=== PATIENT | male | born 1965 | race Caucasian/White ===

== ENCOUNTER 2020-09-03 11:24 | Observation (INO) | payer OTHER, SELFPAY ==
[2020-09-03 11:53] VITALS: BMI 34.2
[2020-09-03] MEDS ORDERED: Acetaminophen 325 MG TAB PO PRN (14:17)
[2020-09-03] MEDS ORDERED: Ondansetron ODT 4 MG TAB PO PRN (14:17)
[2020-09-03] MEDS ORDERED: HYDROcodone/Acetaminophen 5/325 mg Tablet PO PRN (14:17)
[2020-09-03] MEDS ORDERED: Azithromycin 250 MG TAB PO SCH (14:45)
[2020-09-03] MEDS ORDERED: predniSONE 20 MG TAB PO SCH (14:45)
[2020-09-03] MEDS ORDERED: Furosemide 40 MG TAB PO SCH (14:45)
[2020-09-03] MEDS: Famotidine 20 MG TAB PO SCH (21:59)
[2020-09-04 05:32] LABS: #Monocytes 1.1 10x3/uL (0.0-1.1); #Neutrophils 15.6 10x3/uL (1.5-8.4); %Basophils 0.2 % (0.0-2.0); %Eosinophils 0.1 % (0.0-6.0); %Lymphocytes 10.4 % (18.0-47.0); %Monocytes 5.9 % (0.0-10.0); %Neutrophils 82.2 % (40.0-75.0); Hemoglobin 14.3 g/dL (13.5-17.5); Mean Corpuscular HGB CONC 32.3 g/dL (32.0-36.0); Mean Corpuscular Hemoglobin 26.7 pg (27.0-33.0); Mean Corpuscular Volume 82.6 fl (81.2-95.1); Platelet Count 389 10x3/uL (150-450); RBC Distribution Width 14.3 % (11.5-14.5); Red Blood Cell (RBC) Count 5.36 10x6/uL (4.32-5.72)
[2020-09-04 05:49] LABS: ALT (SGPT) 30 U/L (8-55); AST (SGOT) 22 U/L (5-34); Albumin 3.9 g/dL (3.5-5.0); Alkaline Phosphatase 115 U/L (40-110); Anion Gap 16 mmol/L (10-20); BUN (Urea Nitrogen) 30 mg/dL (8.4-25.7); Bilirubin, Total 0.3 mg/dL (0.2-1.2); Calc. Creatinine Clearance 94 mL/min (70-130); Calcium 9.4 mg/dL (7.8-10.44); Carbon Dioxide 28 mmol/L (22-29); Chloride 101 mmol/L (98-107); Globulin 2.9 g/dL (2.4-3.5); Glucose 133 mg/dL (70-105); Potassium 4.9 mmol/L (3.5-5.1); Protein, Total 6.8 g/dL (6.0-8.3); Sodium 140 mmol/L (136-145)
[2020-09-04] MEDS ORDERED: predniSONE 20 MG TAB PO SCH (08:00)
[2020-09-04 08:02] VITALS: BP 181/108; TEMP 97.6
[2020-09-04] MEDS: Famotidine 20 MG TAB PO SCH (08:30)
[2020-09-04] MEDS ORDERED: Furosemide 40 MG TAB PO SCH (09:00)
[2020-09-04] MEDS ORDERED: Enoxaparin Sodium 40 MG/0.4 ML SYRINGE SC SCH (09:00)
[2020-09-04] MEDS ORDERED: Azithromycin 250 MG TAB PO SCH (09:00)
== END 2020-09-04 11:40 | disposition left against medical advice (07) ==
LOC: CSHTELE 11:24
PROVIDERS: ADMIT Emergency Medicine; ATTEND Family Medicine
DX: I11.0 Hypertensive heart disease with heart failure (principal); I50.43 Acute on chronic combined systolic (congestive) and diastolic (congestive) heart failure; J44.1 Chronic obstructive pulmonary disease with (acute) exacerbation; F12.10 Cannabis abuse, uncomplicated; F15.10 Other stimulant abuse, uncomplicated; Z79.899 Other long term (current) drug therapy
CPT/HCPCS: 36415; 71046; 80053; 85025; 96372; G0378; J1650; J7512

== ENCOUNTER 2021-01-12 17:16 | Inpatient (IN) | payer MEDICARE ==
[2021-01-12 18:12] LABS: Base Excess (BEa) -2.7 mEq/L (-2.0 to +3.0); Calcium, Ionized (arterial) 1.16 mmol/L (1.12-1.30); Carboxyhemoglobin (COHb) 0.8 gm% (0.0-3.0); Hemoglobin (Hb) 13.6 g/dL (14.0-18.0); O2 Tension (PaO2), arterial 104.7 mmHg (80.0-100.0); Potassium - ABG Lab 5.6 mmol/L (3.70-5.30); Puncture Site RRA; pH, Arterial 7.23 (7.35-7.45)
[2021-01-12] MEDS ORDERED: Furosemide 100 MG/10 ML VIAL ONE (18:16)
[2021-01-12] MEDS ORDERED: Nitroglycerin 2% Ointment 1 INCH/1 GM Packet ONE (18:39)
[2021-01-12 18:47] LABS: ALT (SGPT) 1050 U/L (8-55); AST (SGOT) 779 U/L (5-34); Albumin 3.8 g/dL (3.5-5.0); Alkaline Phosphatase 207 U/L (40-110); Anion Gap 16 mmol/L (10-20); BUN (Urea Nitrogen) 58 mg/dL (8.4-25.7); Bilirubin, Total 2.2 mg/dL (0.2-1.2); Calc. Creatinine Clearance 0 mL/min (70-130); Carbon Dioxide 29 mmol/L (22-29); Chloride 99 mmol/L (98-107); Globulin 2.6 g/dL (2.4-3.5); Glucose 89 mg/dL (70-105); Protein, Total 6.4 g/dL (6.0-8.3); Sodium 138 mmol/L (136-145)
[2021-01-12 18:48] LABS: Potassium 6.2 mmol/L (3.5-5.1)
[2021-01-12 19:09] LABS: CKMB 3.8 ng/mL (0-6.6)
[2021-01-12 19:11] LABS: SARS-CoV-2 NAA Rapid Test Not Detected (NotDetected)
[2021-01-12 19:39] LABS: #Monocytes 1.5 10x3/uL (0.0-1.1); #Neutrophils 12.7 10x3/uL (1.5-8.4); %Basophils 0.1 % (0.0-2.0); %Eosinophils 0.1 % (0.0-6.0); %Lymphocytes 11.2 % (18.0-47.0); %Monocytes 9.2 % (0.0-10.0); %Neutrophils 78.6 % (40.0-75.0); Hemoglobin 13.2 g/dL (13.5-17.5); Mean Corpuscular HGB CONC 28.5 g/dL (32.0-36.0); Mean Corpuscular Hemoglobin 22.9 pg (27.0-33.0); Mean Corpuscular Volume 80.2 fl (81.2-95.1); Mean Platelet Volume 10.2 fl (7.4-10.4); Platelet Count 353 10x3/uL (150-450); RBC Distribution Width 18.8 % (11.5-14.5); Red Blood Cell (RBC) Count 5.77 10x6/uL (4.32-5.72); White Blood Cell (WBC) Count 16.2 10x3/uL (3.5-10.5)
[2021-01-12] MEDS ORDERED: Calcium Gluc 4.6 MEQ/10 ML (100 MG/ML) ONE (19:47)
[2021-01-12] MEDS ORDERED: Dextrose 50% Abboject 50 ML SYRINGE ONE (19:49)
[2021-01-12] MEDS ORDERED: Insulin Regular 300 UNITS/3 ML VIAL ONE (19:49)
[2021-01-12] MEDS ORDERED: Albuterol Sulfate 2.5 mg/3 ml Neb ONE ×3 (19:53→19:55)
[2021-01-12] MEDS ORDERED: Piperacillin/Tazobactam 3.375 GM VIAL ONE (20:47)
[2021-01-12] MEDS ORDERED: Sodium Chloride 0.9% 100 ML ONE (20:47)
[2021-01-12] MEDS ORDERED: Senokot S 8.6-50 MG TAB PO PRN (22:37)
[2021-01-12] MEDS ORDERED: Ondansetron PF 4 MG/2 ML Vial IVP PRN (22:37)
[2021-01-12] MEDS ORDERED: Calcium Carbonate 500 MG ChewTAB PO PRN (22:37)
[2021-01-12] MEDS ORDERED: Vancomycin 1 GM in Premix Bag 1 BAG IVPB SCH (22:45)
[2021-01-12] MEDS ORDERED: Lorazepam 2 MG/ML VIAL ONE (23:27)
[2021-01-12 23:42] LABS: Actual Bicarbonate (HCO3a) 33.1 mEq/L (22-28); Base Excess (BEa) 2.9 mEq/L (-2.0 to +3.0); CO2 Tension 81.6 mmHg (35.0-45.0); Calcium, Ionized (arterial) 1.14 mmol/L (1.12-1.30); Carboxyhemoglobin (COHb) 1.1 gm% (0.0-3.0); Hemoglobin (Hb) 13.6 g/dL (14.0-18.0); O2 Tension (PaO2), arterial 78.2 mmHg (80.0-100.0); Potassium - ABG Lab 5.1 mmol/L (3.70-5.30); Puncture Site RRA; pH, Arterial 7.23 (7.35-7.45)
[2021-01-12 23:51] LABS: Anion Gap 16 mmol/L (10-20); BUN (Urea Nitrogen) 56 mg/dL (8.4-25.7); CK (CPK) 79 U/L (30-200); Calc. Creatinine Clearance 0 mL/min (70-130); Calcium 8.7 mg/dL (7.8-10.44); Carbon Dioxide 33 mmol/L (22-29); Chloride 98 mmol/L (98-107); Glucose 64 mg/dL (70-105); Potassium 5.3 mmol/L (3.5-5.1); Sodium 142 mmol/L (136-145)
[2021-01-13 00:14] LABS: CKMB 2.4 ng/mL (0-6.6)
[2021-01-13] MEDS ORDERED: VANCOMYCIN 2 GRAM/400 ML BAG 2 GM in Premix Bag 1 BAG IVPB ONE (01:15)
[2021-01-13 01:25] LABS: Bilirubin Neg (Negative); Blood, Urine 250 (Negative); Glucose, Urine (Dipstick) Normal (Negative); Ketone, Urine Negative (Negative); Leukocyte 100 (Negative); Nitrite Negative (Negative); Protein, Urine (Dipstick) 30 mg/dl (Neg-Trace); Specific Gravity, Urine 1.015 (1.002-1.036); Urobilinogen Normal mg/dL (Less than 2)
[2021-01-13 01:28] LABS: Clarity Slightly Cloudy (Clear)
[2021-01-13 01:34] LABS: Amphetamine Not Detected (NotDetected); Barbiturates Screen Not Detected (NotDetected); Benzodiazepine Screen Not Detected (NotDetected); Cocaine Metabolite Screen Not Detected (NotDetected); Methadone Not Detected (NotDetected); Methamphetamine Not Detected (NotDetected); Opiate Screen Not Detected (NotDetected); Oxycodone Screen Not Detected (NotDetected); Phencyclidine (PCP) Not Detected (NotDetected); THC/Cannabinoid Screen Not Detected (NotDetected); Tricyclic Screen Not Detected (NotDetected)
[2021-01-13] MEDS ORDERED: hydrALAZINE 20 MG/ML VIAL ONE (01:35)
[2021-01-13] MEDS: hydrALAZINE 20 MG/ML VIAL SLOW IVP PRN (01:35)
[2021-01-13 01:42] LABS: Bacteria/HPF None Seen HPF (None Seen); RBC/HPF 21-50 HPF (0-3); Squamous Epithelial None Seen HPF (0-3)
[2021-01-13 02:45] LABS: Lactic Acid 1.8 mmol/L (0.5-2.2)
[2021-01-13] MEDS ORDERED: Piperacillin/Tazobactam 3.375 GM VIAL ONE (03:25)
[2021-01-13 04:50] LABS: ALT (SGPT) 877 U/L (8-55); AST (SGOT) 522 U/L (5-34); Albumin 3.2 g/dL (3.5-5.0); Alkaline Phosphatase 151 U/L (40-110); Anion Gap 13 mmol/L (10-20); BUN (Urea Nitrogen) 57 mg/dL (8.4-25.7); Bilirubin, Total 1.2 mg/dL (0.2-1.2); Calc. Creatinine Clearance 100 mL/min (70-130); Calcium 8.6 mg/dL (7.8-10.44); Carbon Dioxide 32 mmol/L (22-29); Chloride 100 mmol/L (98-107); Globulin 2.5 g/dL (2.4-3.5); Glucose 82 mg/dL (70-105); Potassium 5.3 mmol/L (3.5-5.1); Protein, Total 5.7 g/dL (6.0-8.3); Sodium 140 mmol/L (136-145)
[2021-01-13 04:58] LABS: Actual Bicarbonate (HCO3a) 28.8 mEq/L (22-28); Base Excess (BEa) -1.2 mEq/L (-2.0 to +3.0); CO2 Tension 76.2 mmHg (35.0-45.0); Calcium, Ionized (arterial) 1.14 mmol/L (1.12-1.30); Carboxyhemoglobin (COHb) 1.1 gm% (0.0-3.0); Hemoglobin (Hb) 13.5 g/dL (14.0-18.0); O2 Tension (PaO2), arterial 89.2 mmHg (80.0-100.0); Potassium - ABG Lab 5.1 mmol/L (3.70-5.30); Puncture Site RRA
[2021-01-13 05:12] LABS: CKMB 2.9 ng/mL (0-6.6)
[2021-01-13] MEDS: Piperacillin/Tazobactam 3.375 GM in Sodium Chloride 0.9% 100 ML IVPB SCH ×3 (06:10→21:47)
[2021-01-13] MEDS ORDERED: Furosemide 40 MG/4 ML VIAL ONE (06:14)
[2021-01-13] MEDS: Furosemide 40 MG/4 ML VIAL SLOW IVP SCH ×2 (06:17→21:49)
[2021-01-13] MEDS ORDERED: Budesonide 0.5 MG/2 ML NEB ONE (07:18)
[2021-01-13] MEDS: Budesonide 0.5 MG/2 ML NEB NEB SCH ×2 (07:50→19:11)
[2021-01-13] MEDS ORDERED: Spironolactone 25 MG TAB PO SCH (08:00)
[2021-01-13 08:57] LABS: #Monocytes 1.6 10x3/uL (0.0-1.1); #Neutrophils 11.5 10x3/uL (1.5-8.4); %Basophils 0.3 % (0.0-2.0); %Eosinophils 0.2 % (0.0-6.0); %Lymphocytes 8.9 % (18.0-47.0); %Monocytes 11.1 % (0.0-10.0); %Neutrophils 78.8 % (40.0-75.0); Hemoglobin 12.3 g/dL (13.5-17.5); Mean Corpuscular HGB CONC 29.4 g/dL (32.0-36.0); Mean Corpuscular Volume 78.1 fl (81.2-95.1); Mean Platelet Volume 10.3 fl (7.4-10.4); Platelet Count 307 10x3/uL (150-450); RBC Distribution Width 18.6 % (11.5-14.5); Red Blood Cell (RBC) Count 5.35 10x6/uL (4.32-5.72); White Blood Cell (WBC) Count 14.5 10x3/uL (3.5-10.5)
[2021-01-13] MEDS ORDERED: Lisinopril 10 MG TAB PO SCH (09:00)
[2021-01-13] MEDS ORDERED: Atorvastatin Calcium 40 MG TAB PO SCH (09:00)
[2021-01-13] MEDS ORDERED: Enoxaparin Sodium 40 MG/0.4 ML SYRINGE ONE (11:04)
[2021-01-13] MEDS ORDERED: Famotidine/PF 20 mg/2ml Vial ONE (11:04)
[2021-01-13] MEDS: Famotidine/PF 20 mg/2ml Vial SLOW IVP SCH ×2 (12:26→21:04)
[2021-01-13] MEDS: Enoxaparin Sodium 40 MG/0.4 ML SYRINGE SC SCH (12:27)
[2021-01-13] MEDS ORDERED: methylPREDNISolone Sod Succ/PF 40 MG in Sodium Chloride 0.9% 250 ML 250 ML IVPB SCH (14:00)
[2021-01-13 14:53] LABS: ALV-art Gradient 99.675 mmHg (0-20); Actual Bicarbonate (HCO3a) 35.6 mEq/L (22-28); Base Excess (BEa) 7.1 mEq/L (-2.0 to +3.0); CO2 Tension 70.9 mmHg (35.0-45.0); Calcium, Ionized (arterial) 1.09 mmol/L (1.12-1.30); Carboxyhemoglobin (COHb) 1.3 gm% (0.0-3.0); Hemoglobin (Hb) 12.9 g/dL (14.0-18.0); O2 Tension (PaO2), arterial 96.9 mmHg (80.0-100.0); Potassium - ABG Lab 4.8 mmol/L (3.70-5.30); Puncture Site RRA; pH, Arterial 7.32 (7.35-7.45)
[2021-01-13] MEDS ORDERED: Dexmedetomidine In 0.9 % NaCl 100 ML ONE (15:24)
[2021-01-13] MEDS: hydrALAZINE 25 MG TAB PO SCH ×3 (17:16→22:09)
[2021-01-13] MEDS: Carvedilol 25 MG TAB PO SCH ×2 (17:16→21:45)
[2021-01-13] MEDS: Dexmedetomidine In 0.9 % NaCl 100 ML IVPB SCH ×3 (17:31→23:55)
[2021-01-13 18:35] VITALS: BMI 49.4
[2021-01-13] MEDS: Amiodarone 200 MG TAB PO SCH (21:44)
[2021-01-13] MEDS: Aspirin Chewable 81 MG TAB PO SCH (21:44)
[2021-01-13] MEDS: Tamsulosin HCl 0.4 MG CAP PO SCH (21:46)
[2021-01-13] MEDS: VANCOMYCIN 2 GRAM/400 ML BAG 2 GM in Premix Bag 1 BAG IVPB SCH (21:48)
[2021-01-13] MEDS: methylPREDNISolone Sod Succ 40 MG VIAL IVP SCH ×2 (21:49→21:57)
[2021-01-13] MEDS: Nicotine 21 MG PATCH TD SCH (21:58)
[2021-01-13] MEDS ORDERED: diphenhydrAMINE 50 MG/ML VIAL IVP PRN (22:06)
[2021-01-13] MEDS: Clopidogrel Bisulfate 75 MG TAB PO SCH (22:10)
[2021-01-14] MEDS: VANCOMYCIN 2 GRAM/400 ML BAG 2 GM in Premix Bag 1 BAG IVPB SCH ×2 (00:14→13:55)
[2021-01-14] MEDS: Dexmedetomidine In 0.9 % NaCl 100 ML IVPB SCH ×3 (03:25→09:04)
[2021-01-14] MEDS: Piperacillin/Tazobactam 3.375 GM in Sodium Chloride 0.9% 100 ML IVPB SCH ×3 (04:28→19:07)
[2021-01-14 04:37] LABS: Anion Gap 14 mmol/L (10-20); BUN (Urea Nitrogen) 57 mg/dL (8.4-25.7); Calc. Creatinine Clearance 119 mL/min (70-130); Calcium 8.8 mg/dL (7.8-10.44); Carbon Dioxide 33 mmol/L (22-29); Chloride 100 mmol/L (98-107); Glucose 111 mg/dL (70-105); Potassium 5.9 mmol/L (3.5-5.1); Sodium 141 mmol/L (136-145)
[2021-01-14 04:44] LABS: #Monocytes 0.3 10x3/uL (0.0-1.1); #Neutrophils 8.8 10x3/uL (1.5-8.4); %Basophils 0.3 % (0.0-2.0); %Eosinophils 0.3 % (0.0-6.0); %Monocytes 3.2 % (0.0-10.0); %Neutrophils 88.8 % (40.0-75.0); Hemoglobin 12.9 g/dL (13.5-17.5); Mean Corpuscular HGB CONC 28.9 g/dL (32.0-36.0); Mean Corpuscular Hemoglobin 22.5 pg (27.0-33.0); Mean Corpuscular Volume 77.8 fl (81.2-95.1); RBC Distribution Width 18.7 % (11.5-14.5); Red Blood Cell (RBC) Count 5.73 10x6/uL (4.32-5.72); White Blood Cell (WBC) Count 9.9 10x3/uL (3.5-10.5)
[2021-01-14 04:59] LABS: Platelet Count 235 10x3/uL (150-450)
[2021-01-14 05:00] LABS: Mean Platelet Volume 10.5 fl (7.4-10.4)
[2021-01-14] MEDS: Furosemide 40 MG/4 ML VIAL SLOW IVP SCH ×2 (05:02→13:52)
[2021-01-14] MEDS: methylPREDNISolone Sod Succ 40 MG VIAL IVP SCH ×3 (05:03→21:07)
[2021-01-14 06:41] LABS: Helmet Cells SLIGHT = 2-5 cells (100X) (0-1/hpf); Ovalocytes MODERATE= 6-15 cells (100X) (0-1/hpf); Poikilocytosis MODERATE=16-30 cells (100X) (0-5/hpf)
[2021-01-14 06:42] LABS: Anisocytosis SLIGHT = 6-15 cells (100X) (0-5/hpf); Hypochromia SLIGHT = 6-15 cells (100X) (0-5/hpf); Microcytosis SLIGHT = 6-15 cells (100X) (0-5/hpf)
[2021-01-14 06:43] LABS: Platelet Clumps SLIGHT; Platelet Morphology Comment Appears Adequate
[2021-01-14] MEDS: Budesonide 0.5 MG/2 ML NEB NEB SCH (07:17)
[2021-01-14] MEDS: hydrALAZINE 20 MG/ML VIAL SLOW IVP PRN (08:40)
[2021-01-14] MEDS: Carvedilol 25 MG TAB PO SCH ×2 (09:00→18:22)
[2021-01-14] MEDS: Enoxaparin Sodium 40 MG/0.4 ML SYRINGE SC SCH (09:05)
[2021-01-14] MEDS: Nicotine 21 MG PATCH TD SCH (09:05)
[2021-01-14 09:29] LABS: #Monocytes 0.1 10x3/uL (0.0-1.1); #Neutrophils 7.5 10x3/uL (1.5-8.4); %Basophils 0.1 % (0.0-2.0); %Lymphocytes 5.7 % (18.0-47.0); %Monocytes 1.2 % (0.0-10.0); %Neutrophils 92.3 % (40.0-75.0); Hemoglobin 13.3 g/dL (13.5-17.5); Mean Corpuscular Hemoglobin 22.8 pg (27.0-33.0); Mean Corpuscular Volume 76.2 fl (81.2-95.1); Mean Platelet Volume 9.8 fl (7.4-10.4); Platelet Count 281 10x3/uL (150-450); RBC Distribution Width 19.1 % (11.5-14.5); Red Blood Cell (RBC) Count 5.83 10x6/uL (4.32-5.72); White Blood Cell (WBC) Count 8.1 10x3/uL (3.5-10.5)
[2021-01-14] MEDS: Famotidine/PF 20 mg/2ml Vial SLOW IVP SCH ×2 (09:40→20:29)
[2021-01-14] MEDS: hydrALAZINE 25 MG TAB PO SCH ×3 (09:47→20:28)
[2021-01-14 10:04] LABS: Base Excess (BEa) 7.6 mEq/L (-2.0 to +3.0); Calcium, Ionized (arterial) 1.09 mmol/L (1.12-1.30); Carboxyhemoglobin (COHb) 0.8 gm% (0.0-3.0); Hemoglobin (Hb) 13.9 g/dL (14.0-18.0); O2 Tension (PaO2), arterial 95.2 mmHg (80.0-100.0); Potassium - ABG Lab 5.1 mmol/L (3.70-5.30); Puncture Site LRA; pH, Arterial 7.41 (7.35-7.45)
[2021-01-14 10:13] LABS: Anion Gap 18 mmol/L (10-20); BUN (Urea Nitrogen) 56 mg/dL (8.4-25.7); Calc. Creatinine Clearance 110 mL/min (70-130); Calcium 9.1 mg/dL (7.8-10.44); Carbon Dioxide 32 mmol/L (22-29); Chloride 100 mmol/L (98-107); Glucose 151 mg/dL (70-105); Potassium 5.7 mmol/L (3.5-5.1); Sodium 144 mmol/L (136-145)
[2021-01-14] MEDS: Amiodarone 200 MG TAB PO SCH (11:37)
[2021-01-14] MEDS: Tamsulosin HCl 0.4 MG CAP PO SCH (11:37)
[2021-01-14] MEDS: Aspirin Chewable 81 MG TAB PO SCH (11:37)
[2021-01-14 12:36] LABS: Vancomycin, Trough 14.8 ug/mL
[2021-01-14] MEDS: Clopidogrel Bisulfate 75 MG TAB PO SCH (20:28)
[2021-01-15] MEDS: Budesonide 0.5 MG/2 ML NEB NEB SCH ×3 (00:07→19:56)
[2021-01-15] MEDS: VANCOMYCIN 2 GRAM/400 ML BAG 2 GM in Premix Bag 1 BAG IVPB SCH ×2 (00:17→13:01)
[2021-01-15] MEDS: Piperacillin/Tazobactam 3.375 GM in Sodium Chloride 0.9% 100 ML IVPB SCH ×3 (03:43→19:33)
[2021-01-15 04:17] LABS: #Monocytes 0.5 10x3/uL (0.0-1.1); #Neutrophils 12.1 10x3/uL (1.5-8.4); %Basophils 0.1 % (0.0-2.0); %Lymphocytes 4.4 % (18.0-47.0); %Monocytes 3.8 % (0.0-10.0); %Neutrophils 91.2 % (40.0-75.0); Anion Gap 15 mmol/L (10-20); BUN (Urea Nitrogen) 55 mg/dL (8.4-25.7); Calc. Creatinine Clearance 119 mL/min (70-130); Calcium 8.7 mg/dL (7.8-10.44); Carbon Dioxide 35 mmol/L (22-29); Chloride 98 mmol/L (98-107); Glucose 113 mg/dL (70-105); Hemoglobin 11.7 g/dL (13.5-17.5); Mean Corpuscular HGB CONC 29.7 g/dL (32.0-36.0); Mean Corpuscular Hemoglobin 22.6 pg (27.0-33.0); Mean Corpuscular Volume 76.1 fl (81.2-95.1); Mean Platelet Volume 9.9 fl (7.4-10.4); Platelet Count 300 10x3/uL (150-450); Potassium 4.5 mmol/L (3.5-5.1); RBC Distribution Width 18.6 % (11.5-14.5); Red Blood Cell (RBC) Count 5.18 10x6/uL (4.32-5.72); Sodium 143 mmol/L (136-145); White Blood Cell (WBC) Count 13.3 10x3/uL (3.5-10.5)
[2021-01-15] MEDS: Furosemide 40 MG/4 ML VIAL SLOW IVP SCH ×2 (05:30→14:12)
[2021-01-15] MEDS: methylPREDNISolone Sod Succ 40 MG VIAL IVP SCH ×2 (05:30→20:52)
[2021-01-15] MEDS: Famotidine/PF 20 mg/2ml Vial SLOW IVP SCH ×2 (08:22→20:52)
[2021-01-15] MEDS: Aspirin Chewable 81 MG TAB PO SCH (08:23)
[2021-01-15] MEDS: Tamsulosin HCl 0.4 MG CAP PO SCH (08:23)
[2021-01-15] MEDS: Amiodarone 200 MG TAB PO SCH (08:23)
[2021-01-15] MEDS: Enoxaparin Sodium 40 MG/0.4 ML SYRINGE SC SCH (08:23)
[2021-01-15] MEDS: Nicotine 21 MG PATCH TD SCH (08:23)
[2021-01-15] MEDS: Carvedilol 25 MG TAB PO SCH ×2 (08:24→18:04)
[2021-01-15] MEDS: hydrALAZINE 25 MG TAB PO SCH ×3 (08:34→20:51)
[2021-01-15] MEDS: Clopidogrel Bisulfate 75 MG TAB PO SCH (20:59)
[2021-01-16] MEDS: Acetaminophen 325 MG TAB PO PRN ×2 (00:18→05:04)
[2021-01-16] MEDS: VANCOMYCIN 2 GRAM/400 ML BAG 2 GM in Premix Bag 1 BAG IVPB SCH (00:21)
[2021-01-16] MEDS: Piperacillin/Tazobactam 3.375 GM in Sodium Chloride 0.9% 100 ML IVPB SCH (03:17)
[2021-01-16 04:41] LABS: #Monocytes 0.7 10x3/uL (0.0-1.1); #Neutrophils 10.8 10x3/uL (1.5-8.4); %Basophils 0.1 % (0.0-2.0); %Lymphocytes 4.1 % (18.0-47.0); %Monocytes 5.6 % (0.0-10.0); %Neutrophils 89.6 % (40.0-75.0); Hemoglobin 11.6 g/dL (13.5-17.5); Mean Corpuscular HGB CONC 30.6 g/dL (32.0-36.0); Mean Corpuscular Hemoglobin 23.2 pg (27.0-33.0); Mean Platelet Volume 9.8 fl (7.4-10.4); Platelet Count 276 10x3/uL (150-450); RBC Distribution Width 18.9 % (11.5-14.5); Red Blood Cell (RBC) Count 4.99 10x6/uL (4.32-5.72); White Blood Cell (WBC) Count 12.1 10x3/uL (3.5-10.5)
[2021-01-16 04:54] LABS: ALT (SGPT) 372 U/L (8-55); AST (SGOT) 68 U/L (5-34); Alkaline Phosphatase 102 U/L (40-110); Anion Gap 14 mmol/L (10-20); BUN (Urea Nitrogen) 52 mg/dL (8.4-25.7); Bilirubin, Total 0.9 mg/dL (0.2-1.2); Calc. Creatinine Clearance 125 mL/min (70-130); Calcium 8.7 mg/dL (7.8-10.44); Carbon Dioxide 35 mmol/L (22-29); Chloride 99 mmol/L (98-107); Globulin 2.4 g/dL (2.4-3.5); Glucose 125 mg/dL (70-105); Potassium 4.6 mmol/L (3.5-5.1); Protein, Total 5.4 g/dL (6.0-8.3); Sodium 143 mmol/L (136-145)
[2021-01-16] MEDS: Furosemide 40 MG/4 ML VIAL SLOW IVP SCH ×2 (06:07→16:06)
[2021-01-16] MEDS: Budesonide 0.5 MG/2 ML NEB NEB SCH ×2 (08:06→19:15)
[2021-01-16] MEDS: Aspirin Chewable 81 MG TAB PO SCH (10:23)
[2021-01-16] MEDS: Enoxaparin Sodium 40 MG/0.4 ML SYRINGE SC SCH (10:23)
[2021-01-16] MEDS: Carvedilol 25 MG TAB PO SCH ×2 (10:23→16:06)
[2021-01-16] MEDS: Amoxicillin/Potassium Clav 875 MG TAB PO SCH ×2 (10:23→21:02)
[2021-01-16] MEDS: Nicotine 21 MG PATCH TD SCH (10:23)
[2021-01-16] MEDS: methylPREDNISolone Sod Succ 40 MG VIAL IVP SCH ×2 (10:23→21:01)
[2021-01-16] MEDS: Tamsulosin HCl 0.4 MG CAP PO SCH (10:24)
[2021-01-16] MEDS: Famotidine/PF 20 mg/2ml Vial SLOW IVP SCH ×2 (10:24→21:01)
[2021-01-16] MEDS: hydrALAZINE 25 MG TAB PO SCH ×3 (10:24→21:02)
[2021-01-16] MEDS: Amiodarone 200 MG TAB PO SCH (10:24)
[2021-01-16] MEDS: Clopidogrel Bisulfate 75 MG TAB PO SCH (21:04)
[2021-01-17 04:07] LABS: Anion Gap 12 mmol/L (10-20); BUN (Urea Nitrogen) 42 mg/dL (8.4-25.7); Calc. Creatinine Clearance 135 mL/min (70-130); Calcium 8.8 mg/dL (7.8-10.44); Carbon Dioxide 34 mmol/L (22-29); Chloride 101 mmol/L (98-107); Glucose 236 mg/dL (70-105); Potassium 4.4 mmol/L (3.5-5.1); Sodium 143 mmol/L (136-145)
[2021-01-17 04:08] LABS: #Monocytes 0.6 10x3/uL (0.0-1.1); #Neutrophils 8.8 10x3/uL (1.5-8.4); %Lymphocytes 3.8 % (18.0-47.0); %Monocytes 6.5 % (0.0-10.0); %Neutrophils 89.3 % (40.0-75.0); Hemoglobin 11.6 g/dL (13.5-17.5); Mean Corpuscular HGB CONC 29.4 g/dL (32.0-36.0); Mean Corpuscular Hemoglobin 22.6 pg (27.0-33.0); Mean Corpuscular Volume 76.8 fl (81.2-95.1); Mean Platelet Volume 10.5 fl (7.4-10.4); Platelet Count 275 10x3/uL (150-450); RBC Distribution Width 18.5 % (11.5-14.5); Red Blood Cell (RBC) Count 5.13 10x6/uL (4.32-5.72); White Blood Cell (WBC) Count 9.8 10x3/uL (3.5-10.5)
[2021-01-17] MEDS: Furosemide 20 MG/2 ML VIAL ONE (05:41)
[2021-01-17] MEDS: Furosemide 40 MG/4 ML VIAL SLOW IVP SCH (05:42)
[2021-01-17] MEDS: Budesonide 0.5 MG/2 ML NEB NEB SCH (06:45)
[2021-01-17] MEDS ORDERED: predniSONE 20 MG TAB PO SCH (08:00)
[2021-01-17] MEDS: Nicotine 21 MG PATCH TD SCH (09:05)
[2021-01-17] MEDS: Enoxaparin Sodium 40 MG/0.4 ML SYRINGE SC SCH (09:05)
[2021-01-17] MEDS: Aspirin Chewable 81 MG TAB PO SCH (09:05)
[2021-01-17] MEDS: hydrALAZINE 25 MG TAB PO SCH (09:06)
[2021-01-17] MEDS: methylPREDNISolone Sod Succ 40 MG VIAL IVP SCH (09:06)
[2021-01-17] MEDS: Carvedilol 25 MG TAB PO SCH (09:06)
[2021-01-17] MEDS: Famotidine/PF 20 mg/2ml Vial SLOW IVP SCH (09:06)
[2021-01-17] MEDS: Amoxicillin/Potassium Clav 875 MG TAB PO SCH (09:06)
[2021-01-17] MEDS: Tamsulosin HCl 0.4 MG CAP PO SCH (09:06)
[2021-01-17] MEDS: Amiodarone 200 MG TAB PO SCH (09:06)
[2021-01-17 13:14] VITALS: BP 138/89; TEMP 98.3
[2021-01-17] MEDS ORDERED: Furosemide 40 MG/4 ML VIAL SLOW IVP SCH (14:15)
[2021-01-18] MEDS ORDERED: predniSONE 20 MG TAB PO SCH (08:00)
== END 2021-01-17 16:04 | disposition home or self-care (01) | DRG 871 ==
LOC: CSHERS 17:16 → CSHERHOLD 01-13 01:42 → CSHIMCU 01-13 15:57 → CSHTELE 01-15 13:45
PROVIDERS: ADMIT Student in an Organized Health Care Education/Training Program; ATTEND Internal Medicine
PROC: 5A09457 Assistance with Respiratory Ventilation, 24-96 Consecutive Hours, Continuous Positive Airway Pressure (ICD-10-PCS; principal; 2021-01-13)
DX: A41.9 Sepsis, unspecified organism (principal); G93.41 Metabolic encephalopathy; J96.22 Acute and chronic respiratory failure with hypercapnia; J96.21 Acute and chronic respiratory failure with hypoxia; I50.43 Acute on chronic combined systolic (congestive) and diastolic (congestive) heart failure; J15.6 Pneumonia due to other Gram-negative bacteria; I13.0 Hypertensive heart and chronic kidney disease with heart failure and stage 1 through stage 4 chronic kidney disease, or unspecified chronic kidney disease; N17.9 Acute kidney failure, unspecified; Z68.42 Body mass index [BMI] 45.0-49.9, adult; J44.1 Chronic obstructive pulmonary disease with (acute) exacerbation; I42.9 Cardiomyopathy, unspecified; Z20.822 Contact with and (suspected) exposure to COVID-19; R74.01 Elevation of levels of liver transaminase levels; I48.0 Paroxysmal atrial fibrillation; I25.10 Atherosclerotic heart disease of native coronary artery without angina pectoris; R77.8 Other specified abnormalities of plasma proteins; E87.5 Hyperkalemia; E78.5 Hyperlipidemia, unspecified; N18.30 Chronic kidney disease, stage 3 unspecified; G47.33 Obstructive sleep apnea (adult) (pediatric); Z91.14 Patient's other noncompliance with medication regimen; E66.01 Morbid (severe) obesity due to excess calories; Z79.01 Long term (current) use of anticoagulants; Z79.82 Long term (current) use of aspirin; Z79.899 Other long term (current) drug therapy; F17.210 Nicotine dependence, cigarettes, uncomplicated; N40.0 Benign prostatic hyperplasia without lower urinary tract symptoms
CPT/HCPCS: 36415; 36600; 51702; 70450; 71045; 76705; 80048; 80053; 80202; 80306; 81001; 82550; 82553; 82805; 83605; 83735; 83880; 84145; 84443; 84484; 85025; 87040; 93005; 93306; 93923; 93970; 94640; 94660; 94760; 96365; 96367; 96375; J0360; J1650; J1815; J1940; J2001; J2060; J2543; J2920; J3370; J3490; J7611; J7620; J7626; S0028; U0002

== ENCOUNTER 2021-03-14 04:54 | Inpatient (IN) | payer MEDICARE ==
[2021-03-14 05:43] LABS: #Basophils 0.1 10x3/uL (0.0-0.2); #Eosinphils 0.2 10x3/uL (0.0-0.5); #Monocytes 0.6 10x3/uL (0.0-1.1); #Neutrophils 4.8 10x3/uL (1.5-8.4); %Basophils 0.7 % (0.0-2.0); %Eosinophils 2.2 % (0.0-6.0); %Lymphocytes 18.7 % (18.0-47.0); %Monocytes 8.3 % (0.0-10.0); %Neutrophils 69.8 % (40.0-75.0); Anion Gap 13 mmol/L (10-20); BUN (Urea Nitrogen) 17 mg/dL (8.4-25.7); Calc. Creatinine Clearance 0 mL/min (70-130); Carbon Dioxide 24 mmol/L (22-29); Chloride 109 mmol/L (98-107); Hemoglobin 9.7 g/dL (13.5-17.5); Mean Corpuscular HGB CONC 28.2 g/dL (32.0-36.0); Mean Corpuscular Hemoglobin 20.9 pg (27.0-33.0); Mean Platelet Volume 9.9 fl (7.4-10.4); Platelet Count 372 10x3/uL (150-450); RBC Distribution Width 19.4 % (11.5-14.5); Red Blood Cell (RBC) Count 4.65 10x6/uL (4.32-5.72); Sodium 142 mmol/L (136-145); White Blood Cell (WBC) Count 6.9 10x3/uL (3.5-10.5)
[2021-03-14 05:44] LABS: ALT (SGPT) 14 U/L (8-55); AST (SGOT) 20 U/L (5-34); Albumin 3.8 g/dL (3.5-5.0); Alkaline Phosphatase 91 U/L (40-110); Bilirubin, Total 0.6 mg/dL (0.2-1.2); Calcium 8.7 mg/dL (7.8-10.44); Glucose 197 mg/dL (70-105); Protein, Total 6.8 g/dL (6.0-8.3)
[2021-03-14 06:03] LABS: CKMB 3.5 ng/mL (0-6.6)
[2021-03-14] MEDS ORDERED: Aspirin Chewable 81 MG TAB ONE (06:07)
[2021-03-14 06:10] LABS: Anisocytosis MODERATE=16-30 cells (100X) (0-5/hpf); Hypochromia SLIGHT = 6-15 cells (100X) (0-5/hpf); Microcytosis MODERATE=15-30 cells (100X) (0-5/hpf); Poikilocytosis SLIGHT = 6-15 cells (100X) (0-5/hpf)
[2021-03-14 06:11] LABS: Elliptocytes SLIGHT = 2-5 cells (100X) (0-1/hpf); Large Platelets SLIGHT; Ovalocytes SLIGHT = 2-5 cells (100X) (0-1/hpf); Platelet Morphology Comment Appears Adequate; Polychromasia SLIGHT = 2-3 cells (100X) (0-2/hpf)
[2021-03-14 06:14] LABS: Macrocytosis SLIGHT = 6-15 cells (100X) (0-5/hpf)
[2021-03-14] MEDS ORDERED: Calcium Carbonate 500 MG ChewTAB PO PRN (06:24)
[2021-03-14] MEDS ORDERED: Senokot S 8.6-50 MG TAB PO PRN (06:24)
[2021-03-14] MEDS ORDERED: Acetaminophen 325 MG TAB PO PRN (06:24)
[2021-03-14 06:27] LABS: Bilirubin Neg (Negative); Blood, Urine Negative (Negative); Clarity Clear (Clear); Glucose, Urine (Dipstick) Normal (Negative); Ketone, Urine Negative (Negative); Leukocyte Negative (Negative); Nitrite Negative (Negative); Protein, Urine (Dipstick) 100 mg/dl (Neg-Trace)
[2021-03-14 06:33] LABS: Bacteria/HPF 1+ HPF (None Seen); RBC/HPF 0-3 HPF (0-3); Squamous Epithelial 0-3 HPF (0-3); WBC/HPF 0-3 HPF (0-3)
[2021-03-14 06:33] LABS: SARS-CoV-2 NAA Rapid Test Not Detected (NotDetected)
[2021-03-14 06:34] LABS: Mucous/LPF 1+ LPF (<2+)
[2021-03-14] MEDS ORDERED: Amiodarone In Dextrose 200 ML ONE (06:42)
[2021-03-14 06:49] LABS: Amphetamine Detected (NotDetected); Barbiturates Screen Not Detected (NotDetected); Benzodiazepine Screen Not Detected (NotDetected); Cocaine Metabolite Screen Not Detected (NotDetected); Methadone Not Detected (NotDetected); Methamphetamine Detected (NotDetected); Opiate Screen Not Detected (NotDetected); Oxycodone Screen Not Detected (NotDetected); Phencyclidine (PCP) Not Detected (NotDetected); THC/Cannabinoid Screen Detected (NotDetected); Tricyclic Screen Not Detected (NotDetected)
[2021-03-14 09:02] LABS: Magnesium 1.8 mg/dL (1.6-2.6)
[2021-03-14 09:17] LABS: CKMB 4.8 ng/mL (0-6.6)
[2021-03-14] MEDS: Budesonide 0.5 MG/2 ML NEB NEB SCH ×2 (09:50→20:31)
[2021-03-14 10:39] VITALS: BMI 44.8
[2021-03-14] MEDS: Carvedilol 25 MG TAB PO SCH ×2 (10:40→18:12)
[2021-03-14] MEDS: Spironolactone 25 MG TAB PO SCH (10:43)
[2021-03-14] MEDS: Tamsulosin HCl 0.4 MG CAP PO SCH (10:43)
[2021-03-14] MEDS: Ferrous Sulfate 325 MG TAB PO SCH (10:43)
[2021-03-14] MEDS: Furosemide 40 MG TAB PO SCH ×3 (10:44→15:17)
[2021-03-14] MEDS: Gabapentin 300 MG CAP PO SCH ×3 (10:44→21:23)
[2021-03-14] MEDS: Aspirin 81 mg Enteric Coated Tablet PO SCH (10:45)
[2021-03-14] MEDS: Enoxaparin Sodium 120 MG/0.8 ML SYRINGE SC SCH ×2 (11:46→23:32)
[2021-03-14] MEDS: Amiodarone In Dextrose 200 ML IVPB SCH (12:14)
[2021-03-14 12:57] LABS: CKMB 5.8 ng/mL (0-6.6)
[2021-03-14] MEDS: Atorvastatin Calcium 40 MG TAB PO SCH (21:25)
[2021-03-14] MEDS ORDERED: Zolpidem Tartrate 5 MG TAB PO PRN (23:26)
[2021-03-15] MEDS: Amiodarone In Dextrose 200 ML IVPB SCH (01:21)
[2021-03-15 04:34] LABS: #Basophils 0.1 10x3/uL (0.0-0.2); #Eosinphils 0.1 10x3/uL (0.0-0.5); #Monocytes 0.6 10x3/uL (0.0-1.1); #Neutrophils 3.6 10x3/uL (1.5-8.4); %Basophils 0.8 % (0.0-2.0); %Eosinophils 2.3 % (0.0-6.0); %Lymphocytes 27.8 % (18.0-47.0); %Neutrophils 58.8 % (40.0-75.0); Hemoglobin 9.6 g/dL (13.5-17.5); Mean Corpuscular HGB CONC 28.5 g/dL (32.0-36.0); Mean Corpuscular Hemoglobin 20.9 pg (27.0-33.0); Mean Corpuscular Volume 73.4 fl (81.2-95.1); Mean Platelet Volume 10.1 fl (7.4-10.4); Platelet Count 359 10x3/uL (150-450); RBC Distribution Width 19.7 % (11.5-14.5); Red Blood Cell (RBC) Count 4.59 10x6/uL (4.32-5.72); White Blood Cell (WBC) Count 6.1 10x3/uL (3.5-10.5)
[2021-03-15 04:43] LABS: Anion Gap 14 mmol/L (10-20); BUN (Urea Nitrogen) 19 mg/dL (8.4-25.7); Calc. Creatinine Clearance 101 mL/min (70-130); Calcium 8.8 mg/dL (7.8-10.44); Carbon Dioxide 27 mmol/L (22-29); Chloride 105 mmol/L (98-107); Glucose 113 mg/dL (70-105); Sodium 141 mmol/L (136-145)
[2021-03-15] MEDS: Budesonide 0.5 MG/2 ML NEB NEB SCH ×2 (06:15→19:45)
[2021-03-15] MEDS: Carvedilol 25 MG TAB PO SCH ×2 (09:00→17:15)
[2021-03-15] MEDS: Ferrous Sulfate 325 MG TAB PO SCH (09:00)
[2021-03-15] MEDS ORDERED: Enoxaparin Sodium 120 MG/0.8 ML SYRINGE SC ONE (09:04)
[2021-03-15] MEDS: Gabapentin 300 MG CAP PO SCH ×3 (09:51→20:27)
[2021-03-15] MEDS: Tamsulosin HCl 0.4 MG CAP PO SCH (09:52)
[2021-03-15] MEDS: Aspirin 81 mg Enteric Coated Tablet PO SCH (09:52)
[2021-03-15] MEDS: Enoxaparin Sodium 120 MG/0.8 ML SYRINGE SC SCH ×2 (12:00→22:22)
[2021-03-15] MEDS: Spironolactone 25 MG TAB PO SCH (17:16)
[2021-03-15] MEDS: Nicotine 14 MG PATCH TOP SCH (17:16)
[2021-03-15] MEDS: Furosemide 40 MG TAB PO SCH (17:19)
[2021-03-15] MEDS: Atorvastatin Calcium 40 MG TAB PO SCH (20:27)
[2021-03-15] MEDS: Amiodarone 200 MG TAB PO SCH (20:27)
[2021-03-16] MEDS ORDERED: Furosemide 100 MG/10 ML VIAL SLOW IVP SCH (06:00)
[2021-03-16] MEDS: Budesonide 0.5 MG/2 ML NEB NEB SCH (06:30)
[2021-03-16 06:32] LABS: #Basophils 0.1 10x3/uL (0.0-0.2); #Eosinphils 0.1 10x3/uL (0.0-0.5); #Monocytes 0.5 10x3/uL (0.0-1.1); #Neutrophils 3.6 10x3/uL (1.5-8.4); %Basophils 0.9 % (0.0-2.0); %Eosinophils 2.1 % (0.0-6.0); %Lymphocytes 25.2 % (18.0-47.0); %Monocytes 8.9 % (0.0-10.0); %Neutrophils 62.6 % (40.0-75.0); Hemoglobin 9.3 g/dL (13.5-17.5); Mean Corpuscular HGB CONC 26.9 g/dL (32.0-36.0); Mean Corpuscular Hemoglobin 20.4 pg (27.0-33.0); Mean Corpuscular Volume 75.7 fl (81.2-95.1); Mean Platelet Volume 10.5 fl (7.4-10.4); Platelet Count 363 10x3/uL (150-450); RBC Distribution Width 19.4 % (11.5-14.5); Red Blood Cell (RBC) Count 4.57 10x6/uL (4.32-5.72); White Blood Cell (WBC) Count 5.7 10x3/uL (3.5-10.5)
[2021-03-16 06:39] LABS: Anion Gap 14 mmol/L (10-20); BUN (Urea Nitrogen) 20 mg/dL (8.4-25.7); Calc. Creatinine Clearance 98 mL/min (70-130); Calcium 8.7 mg/dL (7.8-10.44); Carbon Dioxide 24 mmol/L (22-29); Chloride 107 mmol/L (98-107); Glucose 116 mg/dL (70-105); Potassium 5.1 mmol/L (3.5-5.1); Sodium 140 mmol/L (136-145)
[2021-03-16 08:25] VITALS: BP 141/81; TEMP 97.8
[2021-03-16] MEDS: Carvedilol 25 MG TAB PO SCH (08:50)
[2021-03-16] MEDS: Ferrous Sulfate 325 MG TAB PO SCH (08:50)
[2021-03-16] MEDS: Spironolactone 25 MG TAB PO SCH (08:52)
[2021-03-16] MEDS: Gabapentin 300 MG CAP PO SCH (09:45)
[2021-03-16] MEDS: Tamsulosin HCl 0.4 MG CAP PO SCH (09:47)
[2021-03-16] MEDS: Amiodarone 200 MG TAB PO SCH (09:48)
[2021-03-16] MEDS: Aspirin 81 mg Enteric Coated Tablet PO SCH (10:14)
[2021-03-16] MEDS: Nicotine 14 MG PATCH TOP SCH (12:30)
[2021-03-16] MEDS: Enoxaparin Sodium 120 MG/0.8 ML SYRINGE SC SCH (12:30)
== END 2021-03-16 11:20 | disposition home or self-care (01) | DRG 291 ==
LOC: CSHERS 04:54 → SUATTDRO 04:54 → CSHTELE 08:10
PROVIDERS: ADMIT Student in an Organized Health Care Education/Training Program; ATTEND Hospitalist
DX: I13.0 Hypertensive heart and chronic kidney disease with heart failure and stage 1 through stage 4 chronic kidney disease, or unspecified chronic kidney disease (principal); I50.43 Acute on chronic combined systolic (congestive) and diastolic (congestive) heart failure; J96.22 Acute and chronic respiratory failure with hypercapnia; Z68.41 Body mass index [BMI] 40.0-44.9, adult; I47.2 Ventricular tachycardia; N17.9 Acute kidney failure, unspecified; I42.9 Cardiomyopathy, unspecified; N18.30 Chronic kidney disease, stage 3 unspecified; I48.0 Paroxysmal atrial fibrillation; Z20.822 Contact with and (suspected) exposure to COVID-19; E78.5 Hyperlipidemia, unspecified; J44.9 Chronic obstructive pulmonary disease, unspecified; G47.33 Obstructive sleep apnea (adult) (pediatric); G47.419 Narcolepsy without cataplexy; I25.10 Atherosclerotic heart disease of native coronary artery without angina pectoris; N40.0 Benign prostatic hyperplasia without lower urinary tract symptoms; E66.01 Morbid (severe) obesity due to excess calories; F17.210 Nicotine dependence, cigarettes, uncomplicated; F12.10 Cannabis abuse, uncomplicated; Z91.19 Patient's noncompliance with other medical treatment and regimen; I71.4 Abdominal aortic aneurysm, without rupture; D50.9 Iron deficiency anemia, unspecified; F15.10 Other stimulant abuse, uncomplicated
CPT/HCPCS: 36415; 70450; 70496; 70498; 71045; 80048; 80053; 80306; 81003; 81015; 82553; 83735; 83880; 84443; 84484; 85025; 93005; 93010; 93306; 94640; 94760; 96365; J0282; J1650; J1940; J7620; J7626; U0002

== ENCOUNTER 2021-05-23 14:32 | Inpatient (IN) | payer MEDICARE ==
[2021-05-23] MEDS ORDERED: methylPREDNISolone Sod Succ/PF 125 MG/2 ML VIAL ONE (18:40)
[2021-05-23 19:10] LABS: #Eosinphils 0.1 10x3/uL (0.0-0.5); #Monocytes 0.6 10x3/uL (0.0-1.1); #Neutrophils 3.3 10x3/uL (1.5-8.4); %Basophils 0.4 % (0.0-2.0); %Eosinophils 1.1 % (0.0-6.0); %Monocytes 9.9 % (0.0-10.0); %Neutrophils 59.2 % (40.0-75.0); Hemoglobin 12.9 g/dL (13.5-17.5); Mean Corpuscular HGB CONC 28.2 g/dL (32.0-36.0); Mean Corpuscular Hemoglobin 19.1 pg (27.0-33.0); Mean Corpuscular Volume 67.9 fl (81.2-95.1); Mean Platelet Volume 9.9 fl (7.4-10.4); Platelet Count 358 10x3/uL (150-450); RBC Distribution Width 21.7 % (11.5-14.5); Red Blood Cell (RBC) Count 6.75 10x6/uL (4.32-5.72); White Blood Cell (WBC) Count 5.6 10x3/uL (3.5-10.5)
[2021-05-23] MEDS ORDERED: Ventolin HFA Inhaler 60 PUFF INHALER ONE (19:10)
[2021-05-23 19:24] LABS: ALT (SGPT) 44 U/L (8-55); AST (SGOT) 30 U/L (5-34); Albumin 3.7 g/dL (3.5-5.0); Alkaline Phosphatase 104 U/L (40-110); Anion Gap 15 mmol/L (10-20); BUN (Urea Nitrogen) 16 mg/dL (8.4-25.7); Bilirubin, Total 0.3 mg/dL (0.2-1.2); Calc. Creatinine Clearance 0 mL/min (70-130); Carbon Dioxide 26 mmol/L (22-29); Chloride 105 mmol/L (98-107); Globulin 3.3 g/dL (2.4-3.5); Glucose 99 mg/dL (70-105); Lipase 17 U/L (8-78); Magnesium 1.9 mg/dL (1.6-2.6); Potassium 4.8 mmol/L (3.5-5.1); Sodium 141 mmol/L (136-145)
[2021-05-23 19:44] LABS: Platelet Morphology Comment Appears Adequate
[2021-05-23 19:45] LABS: Anisocytosis MODERATE=16-30 cells (100X) (0-5/hpf); Elliptocytes SLIGHT = 2-5 cells (100X) (0-1/hpf); Hypochromia SLIGHT = 6-15 cells (100X) (0-5/hpf); Macrocytosis SLIGHT = 6-15 cells (100X) (0-5/hpf); Microcytosis SLIGHT = 6-15 cells (100X) (0-5/hpf)
[2021-05-23 20:13] LABS: CKMB 1.9 ng/mL (0-6.6)
[2021-05-23 20:24] LABS: SARS-CoV-2 NAA Rapid Test DETECTED (NotDetected)
[2021-05-23] MEDS ORDERED: Acetaminophen 325 MG TAB PO PRN (22:07)
[2021-05-23] MEDS ORDERED: Aspirin 81 mg Enteric Coated Tablet PO SCH (22:15)
[2021-05-23 22:26] VITALS: BMI 45.6
[2021-05-23] MEDS ORDERED: Furosemide 100 MG/10 ML VIAL SLOW IVP SCH (22:30)
[2021-05-23] MEDS ORDERED: Ascorbic Acid 500 mg Chewable Tablet PO SCH (22:30)
[2021-05-23] MEDS ORDERED: Dexamethasone 4 mg/ml Vial SLOW IVP SCH (22:30)
[2021-05-23] MEDS ORDERED: Cholecalciferol 1,000 UNITS (25 MCG) TAB PO SCH (22:30)
[2021-05-23] MEDS: Guaifenesin DM 100-10/5 ML UDCUP PO PRN (22:59)
[2021-05-23] MEDS ORDERED: cefTRIAXone\\ROCEPHIN 2 GM in Sodium Chloride 0.9% 100 ML IVPB SCH (23:00)
[2021-05-23 23:02] LABS: Magnesium 1.9 mg/dL (1.6-2.6)
[2021-05-23] MEDS ORDERED: Azithromycin 500 MG in Sodium Chloride 0.9% 250 ML 250 ML IVPB SCH (23:59)
[2021-05-24 01:36] LABS: Amphetamine Detected (NotDetected); Barbiturates Screen Not Detected (NotDetected); Benzodiazepine Screen Not Detected (NotDetected); Cocaine Metabolite Screen Not Detected (NotDetected); Methadone Not Detected (NotDetected); Methamphetamine Detected (NotDetected); Opiate Screen Not Detected (NotDetected); Oxycodone Screen Not Detected (NotDetected); Phencyclidine (PCP) Not Detected (NotDetected); THC/Cannabinoid Screen Detected (NotDetected); Tricyclic Screen Not Detected (NotDetected)
[2021-05-24 04:57] LABS: Anion Gap 14 mmol/L (10-20); BUN (Urea Nitrogen) 20 mg/dL (8.4-25.7); Calc. Creatinine Clearance 133 mL/min (70-130); Carbon Dioxide 24 mmol/L (22-29); Chloride 104 mmol/L (98-107); Glucose 232 mg/dL (70-105); Potassium 4.5 mmol/L (3.5-5.1); Sodium 137 mmol/L (136-145)
[2021-05-24 05:03] LABS: Troponin I 0.017 ng/mL (< 0.028)
[2021-05-24 05:22] LABS: #Monocytes 0.1 10x3/uL (0.0-1.1); #Neutrophils 3.7 10x3/uL (1.5-8.4); %Lymphocytes 13.2 % (18.0-47.0); %Monocytes 1.1 % (0.0-10.0); %Neutrophils 85.2 % (40.0-75.0); Hemoglobin 12.6 g/dL (13.5-17.5); Mean Corpuscular HGB CONC 28.3 g/dL (32.0-36.0); Mean Corpuscular Hemoglobin 18.9 pg (27.0-33.0); Mean Corpuscular Volume 67.1 fl (81.2-95.1); Mean Platelet Volume 9.8 fl (7.4-10.4); Platelet Count 361 10x3/uL (150-450); RBC Distribution Width 21.3 % (11.5-14.5); Red Blood Cell (RBC) Count 6.65 10x6/uL (4.32-5.72); White Blood Cell (WBC) Count 4.4 10x3/uL (3.5-10.5)
[2021-05-24] MEDS ORDERED: Furosemide 100 MG/10 ML VIAL SLOW IVP SCH (05:30)
[2021-05-24 06:04] LABS: Platelet Morphology Comment Appears Adequate; RBC Morphology Normal
[2021-05-24] MEDS ORDERED: Mometasone 200 MCG/Formoterol 5 MCG 120 PUFF INHALER INH SCH (06:30)
[2021-05-24] MEDS ORDERED: Mometasone/Formoterol 200/5 60 PUFF INH SCH ×2 (06:30)
[2021-05-24] MEDS ORDERED: Ventolin HFA Inhaler 60 PUFF INHALER INH PRN (07:35)
[2021-05-24] MEDS ORDERED: Dextrose 5% in Water 1,000 ML IV PRN (07:35)
[2021-05-24] MEDS ORDERED: Dextrose 50% Abboject 50 ML SYRINGE SLOW IVP PRN (07:35)
[2021-05-24] MEDS ORDERED: HumaLOG 300 UNITS/3 ML VIAL SC PRN (07:35)
[2021-05-24] MEDS ORDERED: Spironolactone 25 MG TAB PO SCH (08:00)
[2021-05-24] MEDS ORDERED: Zinc Sulfate 220 MG CAP PO SCH (09:00)
[2021-05-24] MEDS ORDERED: Atorvastatin Calcium 40 MG TAB PO SCH (09:00)
[2021-05-24] MEDS ORDERED: Dexamethasone 4 mg/ml Vial SLOW IVP SCH (09:00)
[2021-05-24] MEDS ORDERED: Ascorbic Acid 500 mg Chewable Tablet PO SCH (09:00)
[2021-05-24] MEDS ORDERED: Tamsulosin HCl 0.4 MG CAP PO SCH (09:00)
[2021-05-24] MEDS ORDERED: REMDESIVIR 200 MG in Sodium Chloride 0.9% 250 ML 210 ML IV SCH (09:00)
[2021-05-24] MEDS ORDERED: Amiodarone 200 MG TAB PO SCH (09:00)
[2021-05-24] MEDS ORDERED: Nicotine 21 MG PATCH TD SCH (09:00)
[2021-05-24] MEDS ORDERED: Enoxaparin Sodium 40 MG/0.4 ML SYRINGE SC SCH ×2 (09:00)
[2021-05-24] MEDS ORDERED: Cholecalciferol 1,000 UNITS (25 MCG) TAB PO SCH (09:00)
[2021-05-24] MEDS ORDERED: Aspirin 81 mg Enteric Coated Tablet PO SCH (09:00)
[2021-05-24] MEDS ORDERED: Tiotropium Bromide 4 GM INHALER IH SCH (09:00)
[2021-05-24] MEDS: Carvedilol 25 MG TAB PO SCH ×2 (09:07→17:45)
[2021-05-24] MEDS: Gabapentin 300 MG CAP PO SCH ×2 (09:07→17:45)
[2021-05-24] MEDS: Guaifenesin DM 100-10/5 ML UDCUP PO PRN ×3 (09:08→17:45)
[2021-05-24 12:21] LABS: Hemoglobin A1c 6.3 % (4.0-6.0)
[2021-05-24] MEDS ORDERED: Furosemide 40 MG/4 ML VIAL SLOW IVP SCH (14:00)
[2021-05-24] MEDS ORDERED: Mometasone 100 MCG/Formoterol 5 MCG 120 PUFF INHALER INH SCH (18:30)
[2021-05-24 19:04] VITALS: BP 136/64; TEMP 98
[2021-05-24] MEDS ORDERED: Clopidogrel Bisulfate 75 MG TAB PO SCH (21:00)
[2021-05-25] MEDS ORDERED: Tiotropium Bromide 4 GM INHALER IH SCH (07:00)
[2021-05-25] MEDS ORDERED: REMDESIVIR 100 MG in Sodium Chloride 0.9% 250 ML 230 ML IV SCH (09:00)
[2021-05-25] MEDS ORDERED: Ipratropium Oral Inhaler INH PRN ×2 (09:00)
== END 2021-05-24 18:00 | disposition home or self-care (01) | DRG 177 ==
LOC: CSHERS 14:32 → CSHTELE 21:47
PROVIDERS: ADMIT Family Medicine; ATTEND Family Medicine
PROC: 8E0ZXY6 Isolation (ICD-10-PCS; 2021-05-23)
PROC: XW033E5 Introduction of Remdesivir Anti-infective into Peripheral Vein, Percutaneous Approach, New Technology Group 5 (ICD-10-PCS; principal; 2021-05-24)
DX: U07.1 COVID-19 (principal); I50.43 Acute on chronic combined systolic (congestive) and diastolic (congestive) heart failure; J44.1 Chronic obstructive pulmonary disease with (acute) exacerbation; Z68.42 Body mass index [BMI] 45.0-49.9, adult; J96.12 Chronic respiratory failure with hypercapnia; N17.9 Acute kidney failure, unspecified; E66.01 Morbid (severe) obesity due to excess calories; F41.9 Anxiety disorder, unspecified; F31.9 Bipolar disorder, unspecified; I25.10 Atherosclerotic heart disease of native coronary artery without angina pectoris; F12.10 Cannabis abuse, uncomplicated; F15.10 Other stimulant abuse, uncomplicated; N40.0 Benign prostatic hyperplasia without lower urinary tract symptoms; D50.9 Iron deficiency anemia, unspecified; F17.210 Nicotine dependence, cigarettes, uncomplicated; I48.0 Paroxysmal atrial fibrillation; T38.0X5A Adverse effect of glucocorticoids and synthetic analogues, initial encounter; N18.30 Chronic kidney disease, stage 3 unspecified; R73.9 Hyperglycemia, unspecified; Z79.02 Long term (current) use of antithrombotics/antiplatelets; Z79.899 Other long term (current) drug therapy; Z86.73 Personal history of transient ischemic attack (TIA), and cerebral infarction without residual deficits
CPT/HCPCS: 36415; 36416; 71045; 80048; 80053; 80306; 82553; 83036; 83605; 83690; 83735; 83880; 84484; 85025; 86140; 93005; 93010; 94640; 94664; 94760; J0456; J0696; J1100; J1650; J1815; J1940; J2930; J3490; J7050; J7620; U0002

== ENCOUNTER 2021-06-23 01:22 | Inpatient (IN) | payer MEDICARE, OTHER ==
[2021-06-23] MEDS ORDERED: Norepinephrine 8 MG/0.9% NS 250 ML ONE (02:01)
[2021-06-23] MEDS ORDERED: Aspirin Chewable 81 MG TAB ONE (02:01)
[2021-06-23 02:06] LABS: #Basophils 0.1 10x3/uL (0.0-0.2); #Eosinphils 0.1 10x3/uL (0.0-0.5); #Monocytes 0.9 10x3/uL (0.0-1.1); %Basophils 0.6 % (0.0-2.0); %Eosinophils 1.4 % (0.0-6.0); %Lymphocytes 27.3 % (18.0-47.0); %Monocytes 8.8 % (0.0-10.0); Hemoglobin 13.6 g/dL (13.5-17.5); Mean Corpuscular HGB CONC 29.6 g/dL (32.0-36.0); Mean Corpuscular Hemoglobin 20.3 pg (27.0-33.0); Mean Corpuscular Volume 68.6 fl (81.2-95.1); Mean Platelet Volume 9.4 fl (7.4-10.4); Platelet Count 313 10x3/uL (150-450); RBC Distribution Width 25.2 % (11.5-14.5); Red Blood Cell (RBC) Count 6.69 10x6/uL (4.32-5.72); White Blood Cell (WBC) Count 9.8 10x3/uL (3.5-10.5)
[2021-06-23 02:07] LABS: Albumin 3.8 g/dL (3.5-5.0); Bilirubin, Total 0.3 mg/dL (0.2-1.2); Calc. Creatinine Clearance 0 mL/min (70-130)
[2021-06-23 02:36] LABS: Anisocytosis SLIGHT = 6-15 cells (100X) (0-5/hpf); Hypochromia SLIGHT = 6-15 cells (100X) (0-5/hpf); Macrocytosis SLIGHT = 6-15 cells (100X) (0-5/hpf); Microcytosis SLIGHT = 6-15 cells (100X) (0-5/hpf); Platelet Morphology Comment Appears Adequate; Target Cells SLIGHT = 2-5 cells (100X) (0-1/hpf)
[2021-06-23 02:37] LABS: Elliptocytes SLIGHT = 2-5 cells (100X) (0-1/hpf)
[2021-06-23 02:40] LABS: CKMB 1.8 ng/mL (0-6.6)
[2021-06-23 03:02] LABS: ALT (SGPT) 29 U/L (8-55); AST (SGOT) 24 U/L (5-34); Alkaline Phosphatase 104 U/L (40-110); Anion Gap 20 mmol/L (10-20); BUN (Urea Nitrogen) 34 mg/dL (8.4-25.7); Calcium 9.4 mg/dL (7.8-10.44); Carbon Dioxide 21 mmol/L (22-29); Chloride 99 mmol/L (98-107); Globulin 3.4 g/dL (2.4-3.5); Glucose 219 mg/dL (70-105); Potassium 4.9 mmol/L (3.5-5.1); Protein, Total 7.2 g/dL (6.0-8.3); Sodium 135 mmol/L (136-145)
[2021-06-23] MEDS ORDERED: Enoxaparin Sodium 40 MG/0.4 ML SYRINGE ONE (03:20)
[2021-06-23] MEDS ORDERED: Enoxaparin Sodium 100 MG/ML SYRINGE ONE (03:20)
[2021-06-23] MEDS ORDERED: Ondansetron PF 4 MG/2 ML Vial IVP PRN (03:45)
[2021-06-23] MEDS ORDERED: Acetaminophen 325 MG TAB PO PRN (03:45)
[2021-06-23] MEDS ORDERED: Senokot S 8.6-50 MG TAB PO PRN (03:45)
[2021-06-23] MEDS ORDERED: Guaifenesin DM 100-10/5 ML UDCUP PO PRN (03:45)
[2021-06-23] MEDS ORDERED: Calcium Carbonate 500 MG ChewTAB PO PRN (03:45)
[2021-06-23] MEDS ORDERED: Sodium Chloride 0.9% 500 ML IV SCH (04:00)
[2021-06-23 04:24] VITALS: BMI 46.3
[2021-06-23 05:19] LABS: Bilirubin Neg (Negative); Blood, Urine Negative (Negative); Clarity Clear (Clear); Glucose, Urine (Dipstick) Normal (Negative); Ketone, Urine Negative (Negative); Leukocyte Negative (Negative); Nitrite Negative (Negative); Protein, Urine (Dipstick) 30 mg/dl (Neg-Trace); Specific Gravity, Urine 1.015 (1.002-1.036); Urobilinogen Normal mg/dL (Less than 2)
[2021-06-23 05:28] LABS: Urine Culture Reflex No No
[2021-06-23 05:31] LABS: Amphetamine Detected (NotDetected); Barbiturates Screen Not Detected (NotDetected); Benzodiazepine Screen Not Detected (NotDetected); Cocaine Metabolite Screen Not Detected (NotDetected); Methadone Not Detected (NotDetected); Methamphetamine Detected (NotDetected); Opiate Screen Not Detected (NotDetected); Oxycodone Screen Not Detected (NotDetected); Phencyclidine (PCP) Not Detected (NotDetected); THC/Cannabinoid Screen Detected (NotDetected); Tricyclic Screen Not Detected (NotDetected)
[2021-06-23 05:44] LABS: Bacteria/HPF None Seen HPF (None Seen); RBC/HPF 0-3 HPF (0-3); Squamous Epithelial 0-3 HPF (0-3); WBC/HPF 0-3 HPF (0-3)
[2021-06-23] MEDS ORDERED: Mometasone 200 MCG/Formoterol 5 MCG 120 PUFF INHALER INH SCH (06:30)
[2021-06-23 06:58] LABS: Anion Gap 17 mmol/L (10-20); BUN (Urea Nitrogen) 32 mg/dL (8.4-25.7); Calc. Creatinine Clearance 100 mL/min (70-130); Calcium 8.4 mg/dL (7.8-10.44); Carbon Dioxide 20 mmol/L (22-29); Chloride 106 mmol/L (98-107); Glucose 159 mg/dL (70-105); Magnesium 1.9 mg/dL (1.6-2.6); Potassium 5.3 mmol/L (3.5-5.1); Sodium 138 mmol/L (136-145)
[2021-06-23 07:23] LABS: CKMB 2.1 ng/mL (0-6.6)
[2021-06-23] MEDS: Mometasone/Formoterol 200/5 60 PUFF INH SCH ×2 (07:53→19:37)
[2021-06-23] MEDS: Carvedilol 3.125 MG TAB PO SCH ×2 (10:04→16:32)
[2021-06-23] MEDS: Amiodarone 200 MG TAB PO SCH ×2 (10:04→22:29)
[2021-06-23] MEDS: Aspirin 81 mg Enteric Coated Tablet PO SCH (10:04)
[2021-06-23 10:39] LABS: CKMB 2.5 ng/mL (0-6.6)
[2021-06-23] MEDS: Enoxaparin Sodium 40 MG/0.4 ML SYRINGE SC SCH (15:02)
[2021-06-23] MEDS: Enoxaparin Sodium 100 MG/ML SYRINGE SC SCH (15:02)
[2021-06-23] MEDS ORDERED: Atorvastatin Calcium 40 MG TAB PO SCH (21:00)
[2021-06-23] MEDS ORDERED: Tamsulosin HCl 0.4 MG CAP PO SCH (21:00)
[2021-06-24] MEDS: Enoxaparin Sodium 40 MG/0.4 ML SYRINGE SC SCH (04:50)
[2021-06-24] MEDS: Enoxaparin Sodium 100 MG/ML SYRINGE SC SCH (04:50)
[2021-06-24 05:11] LABS: #Eosinphils 0.1 10x3/uL (0.0-0.5); #Monocytes 0.7 10x3/uL (0.0-1.1); #Neutrophils 5.2 10x3/uL (1.5-8.4); %Basophils 0.4 % (0.0-2.0); %Eosinophils 1.4 % (0.0-6.0); %Lymphocytes 24.5 % (18.0-47.0); %Monocytes 8.4 % (0.0-10.0); %Neutrophils 64.7 % (40.0-75.0); Mean Corpuscular HGB CONC 28.2 g/dL (32.0-36.0); Mean Corpuscular Hemoglobin 20.3 pg (27.0-33.0); Mean Corpuscular Volume 71.8 fl (81.2-95.1); Platelet Count 284 10x3/uL (150-450); RBC Distribution Width 24.4 % (11.5-14.5); Red Blood Cell (RBC) Count 5.92 10x6/uL (4.32-5.72); White Blood Cell (WBC) Count 8.1 10x3/uL (3.5-10.5)
[2021-06-24 05:21] LABS: Anion Gap 13 mmol/L (10-20); BUN (Urea Nitrogen) 25 mg/dL (8.4-25.7); Calc. Creatinine Clearance 132 mL/min (70-130); Calcium 8.8 mg/dL (7.8-10.44); Carbon Dioxide 24 mmol/L (22-29); Chloride 107 mmol/L (98-107); Glucose 130 mg/dL (70-105); Potassium 5.4 mmol/L (3.5-5.1); Sodium 139 mmol/L (136-145)
[2021-06-24] MEDS: Amiodarone 200 MG TAB PO SCH (08:40)
[2021-06-24] MEDS: Carvedilol 3.125 MG TAB PO SCH (08:40)
[2021-06-24] MEDS: Aspirin 81 mg Enteric Coated Tablet PO SCH (08:40)
[2021-06-24] MEDS: Mometasone/Formoterol 200/5 60 PUFF INH SCH (11:39)
[2021-06-24 13:28] VITALS: BP 138/92; TEMP 96.2
== END 2021-06-24 13:28 | disposition home or self-care (01) | DRG 313 ==
LOC: CSHERS 01:22 → CSHTELE 03:51
PROVIDERS: ADMIT Student in an Organized Health Care Education/Training Program; ATTEND Family Medicine
DX: R07.9 Chest pain, unspecified (principal); N17.9 Acute kidney failure, unspecified; I50.42 Chronic combined systolic (congestive) and diastolic (congestive) heart failure; J96.12 Chronic respiratory failure with hypercapnia; I74.09 Other arterial embolism and thrombosis of abdominal aorta; I42.9 Cardiomyopathy, unspecified; Z68.42 Body mass index [BMI] 45.0-49.9, adult; I13.0 Hypertensive heart and chronic kidney disease with heart failure and stage 1 through stage 4 chronic kidney disease, or unspecified chronic kidney disease; I25.10 Atherosclerotic heart disease of native coronary artery without angina pectoris; J44.9 Chronic obstructive pulmonary disease, unspecified; I48.0 Paroxysmal atrial fibrillation; F17.210 Nicotine dependence, cigarettes, uncomplicated; I95.9 Hypotension, unspecified; F12.10 Cannabis abuse, uncomplicated; F31.9 Bipolar disorder, unspecified; F41.9 Anxiety disorder, unspecified; G47.33 Obstructive sleep apnea (adult) (pediatric); E66.01 Morbid (severe) obesity due to excess calories; G47.419 Narcolepsy without cataplexy; E86.1 Hypovolemia; E86.0 Dehydration; R74.8 Abnormal levels of other serum enzymes; N18.31 Chronic kidney disease, stage 3a; E78.5 Hyperlipidemia, unspecified; R73.9 Hyperglycemia, unspecified; K21.9 Gastro-esophageal reflux disease without esophagitis; F19.10 Other psychoactive substance abuse, uncomplicated; Z79.899 Other long term (current) drug therapy; I25.2 Old myocardial infarction; Z86.73 Personal history of transient ischemic attack (TIA), and cerebral infarction without residual deficits; Z91.14 Patient's other noncompliance with medication regimen
CPT/HCPCS: 36415; 36416; 71045; 80048; 80053; 80306; 81001; 82553; 83735; 83880; 84443; 84484; 85025; 85379; 87804; 93005; 93010; 93306; 94664; 94760; 96372; J1650; J7030

== ENCOUNTER 2021-09-30 16:52 | Emergency (ER) | payer OTHER, MEDICARE ==
[2021-09-30 17:32] LABS: #Eosinphils 0.1 10x3/uL (0.0-0.5); #Monocytes 0.4 10x3/uL (0.0-1.1); #Neutrophils 4.5 10x3/uL (1.5-8.4); %Basophils 0.6 % (0.0-2.0); %Eosinophils 1.4 % (0.0-6.0); %Lymphocytes 22.9 % (18.0-47.0); %Monocytes 6.4 % (0.0-10.0); %Neutrophils 68.2 % (40.0-75.0); Hemoglobin 13.7 g/dL (13.5-17.5); Mean Corpuscular HGB CONC 31.8 g/dL (32.0-36.0); Mean Corpuscular Hemoglobin 24.4 pg (27.0-33.0); Mean Corpuscular Volume 76.8 fl (81.2-95.1); Mean Platelet Volume 10.6 fl (7.4-10.4); Platelet Count 296 10x3/uL (150-450); RBC Distribution Width 18.7 % (11.5-14.5); Red Blood Cell (RBC) Count 5.61 10x6/uL (4.32-5.72); White Blood Cell (WBC) Count 6.6 10x3/uL (3.5-10.5)
[2021-09-30 17:47] LABS: ALT (SGPT) 30 U/L (8-55); AST (SGOT) 18 U/L (5-34); Albumin 3.6 g/dL (3.5-5.0); Alkaline Phosphatase 110 U/L (40-110); Anion Gap 11 mmol/L (10-20); BUN (Urea Nitrogen) 19 mg/dL (8.4-25.7); Bilirubin, Total 0.3 mg/dL (0.2-1.2); CK (CPK) 72 U/L (30-200); Calc. Creatinine Clearance 0 mL/min (70-130); Calcium 8.9 mg/dL (7.8-10.44); Carbon Dioxide 29 mmol/L (22-29); Chloride 101 mmol/L (98-107); Globulin 2.4 g/dL (2.4-3.5); Glucose 110 mg/dL (70-105); Lipase 31 U/L (8-78); Potassium 4.2 mmol/L (3.5-5.1); Sodium 137 mmol/L (136-145)
[2021-09-30 18:11] LABS: CKMB 3.2 ng/mL (0-6.6)
== END 2021-09-30 19:09 | disposition home or self-care (01) ==
LOC: CSHERS 16:52
DX: R07.89 Other chest pain (principal); R79.89 Other specified abnormal findings of blood chemistry; I45.10 Unspecified right bundle-branch block; I50.9 Heart failure, unspecified; J44.9 Chronic obstructive pulmonary disease, unspecified; G51.0 Bell's palsy; E66.9 Obesity, unspecified; F17.210 Nicotine dependence, cigarettes, uncomplicated; Z86.73 Personal history of transient ischemic attack (TIA), and cerebral infarction without residual deficits; Z68.45 Body mass index [BMI] 70 or greater, adult
CPT/HCPCS: 71045; 80053; 82550; 82553; 83690; 84484; 85025; 93005

== ENCOUNTER 2021-10-18 10:09 | Emergency (ER) | payer MEDICARE, OTHER ==
[2021-10-18] MEDS ORDERED: Aspirin Chewable 81 MG TAB ONE ×2 (10:31→10:32)
[2021-10-18] MEDS ORDERED: Nitroglycerin 0.4 MG TAB 1 EACH ONE (10:33)
[2021-10-18] MEDS ORDERED: Nitroglycerin 2% Ointment 1 INCH/1 GM Packet ONE (10:33)
[2021-10-18 10:51] LABS: #Basophils 0.1 10x3/uL (0.0-0.2); #Eosinphils 0.1 10x3/uL (0.0-0.5); #Monocytes 0.8 10x3/uL (0.0-1.1); #Neutrophils 7.6 10x3/uL (1.5-8.4); %Basophils 0.5 % (0.0-2.0); %Eosinophils 0.7 % (0.0-6.0); %Lymphocytes 19.7 % (18.0-47.0); %Monocytes 7.2 % (0.0-10.0); %Neutrophils 71.1 % (40.0-75.0); Hemoglobin 13.9 g/dL (13.5-17.5); Mean Corpuscular HGB CONC 31.1 g/dL (32.0-36.0); Mean Corpuscular Volume 77.3 fl (81.2-95.1); Platelet Count 321 10x3/uL (150-450); RBC Distribution Width 17.7 % (11.5-14.5); Red Blood Cell (RBC) Count 5.78 10x6/uL (4.32-5.72); White Blood Cell (WBC) Count 10.8 10x3/uL (3.5-10.5)
[2021-10-18 11:07] LABS: ALT (SGPT) 28 U/L (8-55); AST (SGOT) 16 U/L (5-34); Albumin 4.1 g/dL (3.5-5.0); Alkaline Phosphatase 133 U/L (40-110); Anion Gap 13 mmol/L (10-20); BUN (Urea Nitrogen) 24 mg/dL (8.4-25.7); Bilirubin, Total 0.3 mg/dL (0.2-1.2); Calc. Creatinine Clearance 0 mL/min (70-130); Carbon Dioxide 26 mmol/L (22-29); Chloride 101 mmol/L (98-107); Globulin 2.8 g/dL (2.4-3.5); Glucose 147 mg/dL (70-105); Potassium 3.9 mmol/L (3.5-5.1); Protein, Total 6.9 g/dL (6.0-8.3); Sodium 136 mmol/L (136-145)
[2021-10-18 14:34] LABS: Troponin I 0.057 ng/mL (< 0.028)
== END 2021-10-18 15:05 | disposition home or self-care (01) ==
LOC: CSHERS 10:09
DX: R07.9 Chest pain, unspecified (principal); R77.8 Other specified abnormalities of plasma proteins; I45.10 Unspecified right bundle-branch block; I50.9 Heart failure, unspecified; J44.9 Chronic obstructive pulmonary disease, unspecified; G51.0 Bell's palsy; F17.210 Nicotine dependence, cigarettes, uncomplicated; I71.4 Abdominal aortic aneurysm, without rupture; E66.9 Obesity, unspecified; Z68.45 Body mass index [BMI] 70 or greater, adult; Z86.73 Personal history of transient ischemic attack (TIA), and cerebral infarction without residual deficits; Z79.82 Long term (current) use of aspirin; Z79.899 Other long term (current) drug therapy
CPT/HCPCS: 36415; 71045; 80053; 82553; 84484; 85025; 93005

== ENCOUNTER 2021-10-22 11:49 | Emergency (ER) | payer OTHER ==
[2021-10-22] MEDS ORDERED: Aspirin 325 MG TAB ONE (12:30)
[2021-10-22 12:43] LABS: #Basophils 0.1 10x3/uL (0.0-0.2); #Eosinphils 0.1 10x3/uL (0.0-0.5); #Monocytes 0.5 10x3/uL (0.0-1.1); #Neutrophils 5.9 10x3/uL (1.5-8.4); %Basophils 0.6 % (0.0-2.0); %Eosinophils 1.1 % (0.0-6.0); %Lymphocytes 21.8 % (18.0-47.0); %Neutrophils 69.1 % (40.0-75.0); Hemoglobin 14.2 g/dL (13.5-17.5); Mean Corpuscular HGB CONC 32.1 g/dL (32.0-36.0); Mean Corpuscular Hemoglobin 24.5 pg (27.0-33.0); Mean Corpuscular Volume 76.2 fl (81.2-95.1); Mean Platelet Volume 9.6 fl (7.4-10.4); Platelet Count 318 10x3/uL (150-450); RBC Distribution Width 18.5 % (11.5-14.5); White Blood Cell (WBC) Count 8.5 10x3/uL (3.5-10.5)
[2021-10-22 12:56] LABS: Bilirubin Neg (Negative); Blood, Urine Negative (Negative); Clarity Clear (Clear); Glucose, Urine (Dipstick) Normal (Negative); Ketone, Urine Negative (Negative); Leukocyte Negative (Negative); Nitrite Negative (Negative); Protein, Urine (Dipstick) Negative (Neg-Trace); Urobilinogen Normal mg/dL (Less than 2)
[2021-10-22 15:18] LABS: ALT (SGPT) 27 U/L (8-55); AST (SGOT) 17 U/L (5-34); Albumin 3.9 g/dL (3.5-5.0); Alkaline Phosphatase 116 U/L (40-110); Anion Gap 17 mmol/L (10-20); BUN (Urea Nitrogen) 26 mg/dL (8.4-25.7); Bilirubin, Total 0.4 mg/dL (0.2-1.2); Calc. Creatinine Clearance 0 mL/min (70-130); Carbon Dioxide 26 mmol/L (22-29); Chloride 100 mmol/L (98-107); Globulin 2.8 g/dL (2.4-3.5); Glucose 169 mg/dL (70-105); Lipase 44 U/L (8-78); Potassium 4.5 mmol/L (3.5-5.1); Protein, Total 6.7 g/dL (6.0-8.3); Sodium 138 mmol/L (136-145)
[2021-10-22 16:37] LABS: CKMB 1.7 ng/mL (0-6.6)
== END 2021-10-22 17:19 | disposition home or self-care (01) ==
LOC: CSHERS 11:49
DX: R07.9 Chest pain, unspecified (principal); I50.9 Heart failure, unspecified; J44.9 Chronic obstructive pulmonary disease, unspecified; E66.9 Obesity, unspecified; Z86.73 Personal history of transient ischemic attack (TIA), and cerebral infarction without residual deficits; F17.210 Nicotine dependence, cigarettes, uncomplicated
CPT/HCPCS: 36415; 71045; 80053; 81003; 82553; 83690; 83880; 84484; 85025; 93005; 94760

== ENCOUNTER 2021-10-23 13:43 | Emergency (ER) | payer OTHER ==
[2021-10-23] MEDS ORDERED: Aspirin Chewable 81 MG TAB ONE (14:39)
[2021-10-23 14:50] LABS: #Basophils 0.1 10x3/uL (0.0-0.2); #Eosinphils 0.1 10x3/uL (0.0-0.5); #Monocytes 0.7 10x3/uL (0.0-1.1); #Neutrophils 6.6 10x3/uL (1.5-8.4); %Basophils 0.5 % (0.0-2.0); %Eosinophils 0.8 % (0.0-6.0); %Lymphocytes 18.1 % (18.0-47.0); Hemoglobin 13.8 g/dL (13.5-17.5); Mean Corpuscular HGB CONC 31.2 g/dL (32.0-36.0); Mean Corpuscular Hemoglobin 24.6 pg (27.0-33.0); Mean Corpuscular Volume 78.8 fl (81.2-95.1); Mean Platelet Volume 10.1 fl (7.4-10.4); Platelet Count 326 10x3/uL (150-450); RBC Distribution Width 17.3 % (11.5-14.5); Red Blood Cell (RBC) Count 5.61 10x6/uL (4.32-5.72); White Blood Cell (WBC) Count 9.3 10x3/uL (3.5-10.5)
[2021-10-23 14:57] LABS: ALT (SGPT) 19 U/L (8-55); AST (SGOT) 16 U/L (5-34); Albumin 3.7 g/dL (3.5-5.0); Alkaline Phosphatase 104 U/L (40-110); Anion Gap 13 mmol/L (10-20); BUN (Urea Nitrogen) 23 mg/dL (8.4-25.7); Bilirubin, Total 0.5 mg/dL (0.2-1.2); Calc. Creatinine Clearance 0 mL/min (70-130); Calcium 8.7 mg/dL (7.8-10.44); Carbon Dioxide 29 mmol/L (22-29); Chloride 100 mmol/L (98-107); Globulin 2.9 g/dL (2.4-3.5); Glucose 103 mg/dL (70-105); Potassium 4.4 mmol/L (3.5-5.1); Protein, Total 6.6 g/dL (6.0-8.3); Sodium 138 mmol/L (136-145)
[2021-10-23 16:31] LABS: CKMB 1.7 ng/mL (0-6.6)
== END 2021-10-23 17:20 | disposition home or self-care (01) ==
LOC: CSHERS 13:43
DX: R07.9 Chest pain, unspecified (principal); I50.9 Heart failure, unspecified; J44.9 Chronic obstructive pulmonary disease, unspecified; F17.200 Nicotine dependence, unspecified, uncomplicated
CPT/HCPCS: 71045; 80053; 82553; 83880; 84484; 85025; 93005

== ENCOUNTER 2021-12-03 13:00 | Inpatient (IN) | payer MEDICARE, OTHER ==
[2021-12-03] MEDS ORDERED: Nitroglycerin 0.4 MG TAB 1 EACH ONE (13:31)
[2021-12-03 14:02] LABS: #Basophils 0.1 10x3/uL (0.0-0.2); #Monocytes 0.7 10x3/uL (0.0-1.1); #Neutrophils 8.4 10x3/uL (1.5-8.4); %Basophils 0.5 % (0.0-2.0); %Eosinophils 0.3 % (0.0-6.0); %Lymphocytes 16.4 % (18.0-47.0); %Monocytes 6.6 % (0.0-10.0); %Neutrophils 75.7 % (40.0-75.0); Hemoglobin 16.6 g/dL (13.5-17.5); Mean Corpuscular Volume 78.2 fl (81.2-95.1); Platelet Count 348 10x3/uL (150-450); RBC Distribution Width 17.8 % (11.5-14.5); Red Blood Cell (RBC) Count 6.64 10x6/uL (4.32-5.72)
[2021-12-03 14:15] LABS: ALT (SGPT) 17 U/L (8-55); AST (SGOT) 23 U/L (5-34); Albumin 4.6 g/dL (3.5-5.0); Alkaline Phosphatase 135 U/L (40-110); Anion Gap 19 mmol/L (10-20); BUN (Urea Nitrogen) 22 mg/dL (8.4-25.7); Bilirubin, Total 1.2 mg/dL (0.2-1.2); Calc. Creatinine Clearance 0 mL/min (70-130); Calcium 9.9 mg/dL (7.8-10.44); Carbon Dioxide 25 mmol/L (22-29); Chloride 101 mmol/L (98-107); Estimated GFR 56; Globulin 3.6 g/dL (2.4-3.5); Glucose 88 mg/dL (70-105); Lipase 22 U/L (8-78); Potassium 4.4 mmol/L (3.5-5.1); Protein, Total 8.2 g/dL (6.0-8.3); Sodium 141 mmol/L (136-145)
[2021-12-03] MEDS ORDERED: Nitroglycerin 2% Ointment 1 INCH/1 GM Packet ONE (14:17)
[2021-12-03 14:32] LABS: CKMB 5.9 ng/mL (0-6.6)
[2021-12-03] MEDS ORDERED: Iopamidol 370 76% 100 ML VIAL ONE (14:40)
[2021-12-03] MEDS ORDERED: Furosemide 40 MG/4 ML VIAL ONE (15:44)
[2021-12-03] MEDS ORDERED: Aspirin Chewable 81 MG TAB ONE (15:44)
[2021-12-03] MEDS ORDERED: Ondansetron PF 4 MG/2 ML Vial IVP PRN (17:14)
[2021-12-03] MEDS ORDERED: Acetaminophen 325 MG TAB PO PRN (17:14)
[2021-12-03] MEDS ORDERED: Ondansetron ODT 4 MG TAB PO PRN (17:14)
[2021-12-03] MEDS ORDERED: Guaifenesin DM 100-10/5 ML UDCUP PO PRN (17:14)
[2021-12-03] MEDS ORDERED: Acetaminophen 650 MG Suppository PR PRN (17:14)
[2021-12-03] MEDS: Nicotine 21 MG PATCH TD SCH (18:26)
[2021-12-03] MEDS ORDERED: Nicotine 21 MG PATCH ONE (18:26)
[2021-12-03 18:45] LABS: CKMB 5.2 ng/mL (0-6.6)
[2021-12-03 20:33] LABS: Troponin I 0.109 ng/mL (< 0.028)
[2021-12-03] MEDS: Carvedilol 3.125 MG TAB PO SCH (21:05)
[2021-12-03] MEDS: Heparin 5,000 UNITS/ML VIAL SC SCH (21:05)
[2021-12-03] MEDS ORDERED: Heparin 5,000 UNITS/ML VIAL ONE (21:06)
[2021-12-03] MEDS ORDERED: Carvedilol 3.125 MG TAB ONE (21:07)
[2021-12-03 23:19] LABS: Troponin I 0.109 ng/mL (< 0.028)
[2021-12-04] MEDS: Nitroglycerin 0.4 MG TAB (25 Tab Bottle) SL PRN ×4 (03:00→20:24)
[2021-12-04] MEDS ORDERED: Nitroglycerin 0.4 MG TAB 1 EACH ONE ×3 (03:05→06:05)
[2021-12-04 05:07] LABS: #Eosinphils 0.1 10x3/uL (0.0-0.5); #Monocytes 0.7 10x3/uL (0.0-1.1); #Neutrophils 5.4 10x3/uL (1.5-8.4); %Basophils 0.5 % (0.0-2.0); %Eosinophils 1.3 % (0.0-6.0); %Lymphocytes 27.5 % (18.0-47.0); %Monocytes 7.9 % (0.0-10.0); %Neutrophils 62.1 % (40.0-75.0); Hemoglobin 14.1 g/dL (13.5-17.5); Mean Corpuscular HGB CONC 32.2 g/dL (32.0-36.0); Mean Corpuscular Hemoglobin 24.9 pg (27.0-33.0); Mean Corpuscular Volume 77.2 fl (81.2-95.1); Mean Platelet Volume 9.8 fl (7.4-10.4); Platelet Count 256 10x3/uL (150-450); RBC Distribution Width 16.8 % (11.5-14.5); Red Blood Cell (RBC) Count 5.67 10x6/uL (4.32-5.72); White Blood Cell (WBC) Count 8.7 10x3/uL (3.5-10.5)
[2021-12-04 05:16] LABS: Anion Gap 15 mmol/L (10-20); BUN (Urea Nitrogen) 33 mg/dL (8.4-25.7); Calc. Creatinine Clearance 0 mL/min (70-130); Calcium 8.9 mg/dL (7.8-10.44); Carbon Dioxide 25 mmol/L (22-29); Chloride 102 mmol/L (98-107); Estimated GFR 49; Glucose 96 mg/dL (70-105); Magnesium 2.1 mg/dL (1.6-2.6); Sodium 138 mmol/L (136-145)
[2021-12-04] MEDS: Furosemide 40 MG/4 ML VIAL SLOW IVP SCH ×2 (06:00→14:28)
[2021-12-04] MEDS ORDERED: Furosemide 40 MG/4 ML VIAL ONE (06:05)
[2021-12-04] MEDS: Heparin 5,000 UNITS/ML VIAL SC SCH ×2 (08:23→20:22)
[2021-12-04] MEDS: Aspirin Chewable 81 MG TAB PO SCH (08:23)
[2021-12-04] MEDS: Carvedilol 3.125 MG TAB PO SCH ×2 (08:23→20:22)
[2021-12-04] MEDS ORDERED: Aspirin Chewable 81 MG TAB ONE (08:29)
[2021-12-04] MEDS ORDERED: Heparin 5,000 UNITS/ML VIAL ONE (08:30)
[2021-12-04] MEDS ORDERED: Carvedilol 3.125 MG TAB ONE (08:31)
[2021-12-04 12:02] LABS: Hemoglobin A1c 6.2 % (4.0-6.0)
[2021-12-04 16:38] VITALS: BMI 48.9
[2021-12-04] MEDS: Nicotine 21 MG PATCH TD SCH (18:15)
[2021-12-04] MEDS ORDERED: Melatonin 3 MG TAB PO PRN (22:34)
[2021-12-05] MEDS ORDERED: ALPRAZolam 0.25 MG TAB PO SCH (00:45)
[2021-12-05 05:15] LABS: Anion Gap 14 mmol/L (10-20); BUN (Urea Nitrogen) 34 mg/dL (8.4-25.7); Calc. Creatinine Clearance 105 mL/min (70-130); Calcium 8.7 mg/dL (7.8-10.44); Carbon Dioxide 30 mmol/L (22-29); Chloride 101 mmol/L (98-107); Estimated GFR 50; Glucose 145 mg/dL (70-105); Magnesium 2.2 mg/dL (1.6-2.6); Potassium 4.1 mmol/L (3.5-5.1); Sodium 141 mmol/L (136-145)
[2021-12-05] MEDS: Furosemide 40 MG/4 ML VIAL SLOW IVP SCH ×2 (06:28→13:17)
[2021-12-05] MEDS: Nitroglycerin 0.4 MG TAB (25 Tab Bottle) SL PRN ×2 (08:12→10:11)
[2021-12-05] MEDS: Carvedilol 3.125 MG TAB PO SCH ×2 (08:14→21:04)
[2021-12-05] MEDS: Aspirin Chewable 81 MG TAB PO SCH (08:14)
[2021-12-05] MEDS: Heparin 5,000 UNITS/ML VIAL SC SCH ×2 (08:15→21:04)
[2021-12-05] MEDS: Nicotine 21 MG PATCH TD SCH (13:17)
[2021-12-05] MEDS ORDERED: Mometasone 200 MCG/Formoterol 5 MCG 120 PUFF INHALER INH SCH (21:00)
[2021-12-05] MEDS ORDERED: Clopidogrel Bisulfate 75 MG TAB PO SCH (21:00)
[2021-12-05] MEDS: Gabapentin 300 MG CAP PO SCH (21:03)
[2021-12-05] MEDS: Amiodarone 200 MG TAB PO SCH (21:03)
[2021-12-05] MEDS: Mometasone/Formoterol 200/5 60 PUFF INH SCH (23:12)
[2021-12-05] MEDS: Ipratropium Bromide 2.5 ml Neb NEB SCH (23:15)
[2021-12-06 04:11] LABS: #Eosinphils 0.1 10x3/uL (0.0-0.5); #Monocytes 0.5 10x3/uL (0.0-1.1); #Neutrophils 4.5 10x3/uL (1.5-8.4); %Basophils 0.4 % (0.0-2.0); %Eosinophils 1.4 % (0.0-6.0); %Lymphocytes 28.2 % (18.0-47.0); %Monocytes 7.3 % (0.0-10.0); Hemoglobin 13.6 g/dL (13.5-17.5); Mean Corpuscular HGB CONC 31.3 g/dL (32.0-36.0); Mean Corpuscular Hemoglobin 24.6 pg (27.0-33.0); Mean Corpuscular Volume 78.8 fl (81.2-95.1); Mean Platelet Volume 10.5 fl (7.4-10.4); Platelet Count 268 10x3/uL (150-450); RBC Distribution Width 17.1 % (11.5-14.5); Red Blood Cell (RBC) Count 5.52 10x6/uL (4.32-5.72); White Blood Cell (WBC) Count 7.3 10x3/uL (3.5-10.5)
[2021-12-06 04:14] LABS: Anion Gap 14 mmol/L (10-20); BUN (Urea Nitrogen) 32 mg/dL (8.4-25.7); Calc. Creatinine Clearance 118 mL/min (70-130); Calcium 9.1 mg/dL (7.8-10.44); Carbon Dioxide 29 mmol/L (22-29); Chloride 102 mmol/L (98-107); Estimated GFR 58; Glucose 101 mg/dL (70-105); Potassium 4.3 mmol/L (3.5-5.1); Sodium 141 mmol/L (136-145)
[2021-12-06] MEDS: Furosemide 40 MG/4 ML VIAL SLOW IVP SCH ×2 (06:27→14:43)
[2021-12-06] MEDS: Ipratropium Bromide 2.5 ml Neb NEB SCH ×2 (08:18→08:50)
[2021-12-06] MEDS ORDERED: Non-Formulary Medication 1 EACH (Tiotropium Bromide 4 GM Inhaler) IH SCH (09:00)
[2021-12-06] MEDS ORDERED: Tamsulosin HCl 0.4 MG CAP PO SCH (09:00)
[2021-12-06] MEDS: Mometasone/Formoterol 200/5 60 PUFF INH SCH (09:00)
[2021-12-06] MEDS ORDERED: Atorvastatin Calcium 40 MG TAB PO SCH (09:00)
[2021-12-06] MEDS: Gabapentin 300 MG CAP PO SCH (09:40)
[2021-12-06] MEDS: Carvedilol 3.125 MG TAB PO SCH (09:40)
[2021-12-06] MEDS: Aspirin Chewable 81 MG TAB PO SCH (09:40)
[2021-12-06] MEDS: Amiodarone 200 MG TAB PO SCH (09:40)
[2021-12-06] MEDS: Heparin 5,000 UNITS/ML VIAL SC SCH (09:44)
[2021-12-06 12:08] VITALS: BP 138/68; TEMP 97.9
== END 2021-12-06 14:59 | disposition home or self-care (01) | DRG 280 ==
LOC: CSHERS 13:00 → CSHTELE 16:51 → UNDOADMIN 17:24 → CSHERHOLD 17:24 → CSHTELE 12-04 13:16 → UNDOADMIN 12-04 13:16 → CSHERHOLD 12-04 13:16 → CSHTELE 12-04 13:18 → CSHERHOLD 12-04 13:18
PROVIDERS: ADMIT Internal Medicine; ATTEND Internal Medicine
DX: I13.0 Hypertensive heart and chronic kidney disease with heart failure and stage 1 through stage 4 chronic kidney disease, or unspecified chronic kidney disease (principal); I50.23 Acute on chronic systolic (congestive) heart failure; I21.A1 Myocardial infarction type 2; Z68.42 Body mass index [BMI] 45.0-49.9, adult; J44.1 Chronic obstructive pulmonary disease with (acute) exacerbation; F41.9 Anxiety disorder, unspecified; F31.9 Bipolar disorder, unspecified; F17.210 Nicotine dependence, cigarettes, uncomplicated; F19.10 Other psychoactive substance abuse, uncomplicated; I25.10 Atherosclerotic heart disease of native coronary artery without angina pectoris; I42.9 Cardiomyopathy, unspecified; N18.9 Chronic kidney disease, unspecified; I48.0 Paroxysmal atrial fibrillation; F12.90 Cannabis use, unspecified, uncomplicated; E66.01 Morbid (severe) obesity due to excess calories; E11.22 Type 2 diabetes mellitus with diabetic chronic kidney disease; Z79.82 Long term (current) use of aspirin; E78.2 Mixed hyperlipidemia; G47.33 Obstructive sleep apnea (adult) (pediatric); Z20.822 Contact with and (suspected) exposure to COVID-19; Z86.73 Personal history of transient ischemic attack (TIA), and cerebral infarction without residual deficits; Z79.899 Other long term (current) drug therapy; Z91.14 Patient's other noncompliance with medication regimen
CPT/HCPCS: 36415; 71045; 71275; 80048; 80053; 82553; 83036; 83690; 83735; 83880; 84484; 85025; 85379; 93005; 93306; 94640; 94664; 94760; 96374; J1644; J1940; J7620; Q9967; U0003; U0005

== ENCOUNTER 2022-01-23 08:49 | Emergency (ER) | payer MEDICARE, OTHER ==
[2022-01-23] MEDS ORDERED: Albuterol Sulfate 2.5 mg/3 ml Neb ONE ×2 (09:14→09:43)
[2022-01-23] MEDS ORDERED: Ipratropium Bromide 2.5 ml Neb ONE (09:14)
[2022-01-23] MEDS ORDERED: Morphine 4 MG/ML VIAL ONE (09:20)
[2022-01-23] MEDS ORDERED: Aspirin Chewable 81 MG TAB ONE (09:20)
[2022-01-23 09:40] LABS: #Eosinphils 0.2 10x3/uL (0.0-0.5); #Monocytes 0.5 10x3/uL (0.0-1.1); #Neutrophils 3.7 10x3/uL (1.5-8.4); %Basophils 0.4 % (0.0-2.0); %Eosinophils 2.8 % (0.0-6.0); %Lymphocytes 21.8 % (18.0-47.0); %Neutrophils 65.5 % (40.0-75.0); Hemoglobin 13.7 g/dL (13.5-17.5); Mean Corpuscular HGB CONC 31.3 g/dL (32.0-36.0); Mean Corpuscular Hemoglobin 25.5 pg (27.0-33.0); Mean Corpuscular Volume 81.4 fl (81.2-95.1); Platelet Count 239 10x3/uL (150-450); RBC Distribution Width 17.2 % (11.5-14.5); Red Blood Cell (RBC) Count 5.38 10x6/uL (4.32-5.72); White Blood Cell (WBC) Count 5.7 10x3/uL (3.5-10.5)
[2022-01-23] MEDS ORDERED: Albuterol Sulfate 2.5 mg/0.5 ml Neb ONE (09:44)
[2022-01-23 09:53] LABS: ALT (SGPT) 34 U/L (8-55); AST (SGOT) 24 U/L (5-34); Albumin 4.2 g/dL (3.5-5.0); Alkaline Phosphatase 122 U/L (40-110); Anion Gap 13 mmol/L (10-20); BUN (Urea Nitrogen) 20 mg/dL (8.4-25.7); Bilirubin, Total 0.3 mg/dL (0.2-1.2); Calc. Creatinine Clearance 0 mL/min (70-130); Calcium 9.4 mg/dL (7.8-10.44); Carbon Dioxide 32 mmol/L (22-29); Chloride 101 mmol/L (98-107); Estimated GFR 49; Globulin 2.7 g/dL (2.4-3.5); Glucose 127 mg/dL (70-105); Lipase 29 U/L (8-78); Magnesium 1.9 mg/dL (1.6-2.6); Potassium 4.3 mmol/L (3.5-5.1); Protein, Total 6.9 g/dL (6.0-8.3); Sodium 142 mmol/L (136-145)
[2022-01-23 10:15] LABS: CKMB 2.2 ng/mL (0-6.6)
[2022-01-23] MEDS ORDERED: Morphine 2 MG/ML VIAL ONE (11:29)
== END 2022-01-23 12:30 | disposition home or self-care (01) ==
LOC: CSHERS 08:49
DX: R07.89 Other chest pain (principal); J44.9 Chronic obstructive pulmonary disease, unspecified; I50.9 Heart failure, unspecified; F17.200 Nicotine dependence, unspecified, uncomplicated
CPT/HCPCS: 71045; 80053; 82553; 83690; 83735; 83880; 84484; 85025; 93005; 94640; 94644; J2270; J7611; J7620

== ENCOUNTER 2022-01-25 23:25 | Inpatient (IN) | payer OTHER ==
[2022-01-26] MEDS ORDERED: methylPREDNISolone Sod Succ/PF 125 MG/2 ML VIAL ONE (01:30)
[2022-01-26] MEDS ORDERED: Morphine 4 MG/ML VIAL ONE (01:30)
[2022-01-26 01:58] LABS: CKMB 4.3 ng/mL (0-6.6)
[2022-01-26] MEDS ORDERED: Magnesium 2 GM/50 ML BAG (IN WATER) ONE (02:04)
[2022-01-26] MEDS ORDERED: Dextrose 50% Abboject 50 ML SYRINGE SLOW IVP PRN (02:46)
[2022-01-26] MEDS ORDERED: Ondansetron PF 4 MG/2 ML Vial IVP PRN (02:46)
[2022-01-26] MEDS ORDERED: Senokot S 8.6-50 MG TAB PO PRN (02:46)
[2022-01-26] MEDS ORDERED: Calcium Carbonate 500 MG ChewTAB PO PRN (02:46)
[2022-01-26] MEDS ORDERED: Dextrose 5% in Water 1,000 ML IV PRN (02:46)
[2022-01-26] MEDS ORDERED: Acetaminophen 325 MG TAB PO PRN (02:46)
[2022-01-26 02:52] LABS: #Neutrophils 7.2 10x3/uL (1.5-8.4); %Basophils 0.2 % (0.0-2.0); %Eosinophils 0.4 % (0.0-6.0); %Lymphocytes 12.9 % (18.0-47.0); %Neutrophils 76.2 % (40.0-75.0); Hemoglobin 13.7 g/dL (13.5-17.5); Mean Corpuscular HGB CONC 31.9 g/dL (32.0-36.0); Mean Corpuscular Hemoglobin 25.4 pg (27.0-33.0); Mean Corpuscular Volume 79.4 fl (81.2-95.1); Platelet Count 269 10x3/uL (150-450); RBC Distribution Width 16.7 % (11.5-14.5); White Blood Cell (WBC) Count 9.5 10x3/uL (3.5-10.5)
[2022-01-26] MEDS ORDERED: Furosemide 40 MG/4 ML VIAL SLOW IVP SCH (03:00)
[2022-01-26 03:03] LABS: ALT (SGPT) 27 U/L (8-55); AST (SGOT) 35 U/L (5-34); Albumin 4.1 g/dL (3.5-5.0); Alkaline Phosphatase 86 U/L (40-110); Anion Gap 16 mmol/L (10-20); BUN (Urea Nitrogen) 16 mg/dL (8.4-25.7); Bilirubin, Total 0.9 mg/dL (0.2-1.2); Calc. Creatinine Clearance 0 mL/min (70-130); Calcium 9.4 mg/dL (7.8-10.44); Carbon Dioxide 25 mmol/L (22-29); Chloride 100 mmol/L (98-107); Estimated GFR 94; Globulin 2.8 g/dL (2.4-3.5); Glucose 107 mg/dL (70-105); Potassium 4.8 mmol/L (3.5-5.1); Protein, Total 6.9 g/dL (6.0-8.3); Sodium 136 mmol/L (136-145)
[2022-01-26] MEDS ORDERED: Levofloxacin 500 mg/D5W 100 ml Premix Bag ONE (03:15)
[2022-01-26] MEDS ORDERED: Vancomycin 1.5 GM in Premix Bag 1 BAG IVPB SCH (03:15)
[2022-01-26] MEDS ORDERED: Cefepime 2 GM VIAL ONE (03:15)
[2022-01-26 04:25] LABS: SARS-CoV-2 NAA Rapid Test Not Detected (NotDetected)
[2022-01-26] MEDS: Guaifenesin DM 100-10/5 ML UDCUP PO PRN (04:27)
[2022-01-26] MEDS: HYDROcodone/Acetaminophen 5/325 mg Tablet PO PRN ×5 (04:28→21:45)
[2022-01-26] MEDS: HumaLOG 300 UNITS/3 ML VIAL SC PRN (04:35)
[2022-01-26 04:48] VITALS: BMI 47.1
[2022-01-26] MEDS: Nitroglycerin 0.4 MG TAB (25 Tab Bottle) SL PRN ×2 (05:09→21:41)
[2022-01-26] MEDS ORDERED: Nitroglycerin 0.4 MG TAB (25 Tab Bottle) ONE (05:13)
[2022-01-26] MEDS ORDERED: Vancomycin 1.5 GRAM/300 ML BAG 1.5 GM in Premix Bag 1 BAG IVPB SCH (05:45)
[2022-01-26 06:34] LABS: Legionella Urinary Ag Negative (Negative); Strep pneumo Urine Ag NEGATIVE (NEGATIVE)
[2022-01-26] MEDS ORDERED: Ipratropium Bromide 2.5 ml Neb NEB SCH (07:00)
[2022-01-26] MEDS: Furosemide 40 MG TAB PO SCH ×2 (09:06→13:27)
[2022-01-26] MEDS: Acetylcysteine 800 MG/4 ML VIAL PO SCH ×2 (09:06→20:57)
[2022-01-26] MEDS: Aspirin 81 mg Enteric Coated Tablet PO SCH (09:06)
[2022-01-26] MEDS: Atorvastatin Calcium 40 MG TAB PO SCH (09:06)
[2022-01-26] MEDS: Lisinopril 2.5 MG TAB PO SCH (09:06)
[2022-01-26] MEDS: Gabapentin 300 MG CAP PO SCH ×3 (09:06→21:01)
[2022-01-26] MEDS: Enoxaparin Sodium 40 MG/0.4 ML SYRINGE SC SCH (09:06)
[2022-01-26] MEDS: methylPREDNISolone Sod Succ 40 MG VIAL IVP SCH ×2 (09:06→21:02)
[2022-01-26] MEDS: Tamsulosin HCl 0.4 MG CAP PO SCH (09:06)
[2022-01-26] MEDS: Carvedilol 3.125 MG TAB PO SCH ×2 (09:06→21:01)
[2022-01-26] MEDS: guaiFENesin ER 600 MG TAB PO SCH ×2 (09:06→21:01)
[2022-01-26] MEDS: Amiodarone 200 MG TAB PO SCH ×2 (09:06→21:01)
[2022-01-26 09:13] LABS: CKMB 5.9 ng/mL (0-6.6)
[2022-01-26] MEDS: Mometasone/Formoterol 200/5 60 PUFF INH SCH ×2 (11:05→19:38)
[2022-01-26] MEDS ORDERED: Zolpidem Tartrate 5 MG TAB PO PRN (11:40)
[2022-01-26] MEDS: Nicotine 14 MG PATCH TD SCH (13:27)
[2022-01-26] MEDS ORDERED: Ketorolac Tromethamine 30 MG/ML VIAL IVP SCH (16:00)
[2022-01-26] MEDS: Clopidogrel Bisulfate 75 MG TAB PO SCH (21:01)
[2022-01-27] MEDS: HumaLOG 300 UNITS/3 ML VIAL SC PRN ×4 (00:49→21:27)
[2022-01-27] MEDS: Nitroglycerin 0.4 MG TAB (25 Tab Bottle) SL PRN (01:48)
[2022-01-27] MEDS: HYDROcodone/Acetaminophen 5/325 mg Tablet PO PRN ×3 (01:48→10:48)
[2022-01-27] MEDS: Guaifenesin DM 100-10/5 ML UDCUP PO PRN ×2 (02:28→11:55)
[2022-01-27] MEDS ORDERED: HYDROcodone/Acetaminophen 5/325 mg Tablet PO SCH (02:30)
[2022-01-27 04:48] LABS: Hemoglobin 12.2 g/dL (13.5-17.5); Mean Corpuscular HGB CONC 31.9 g/dL (32.0-36.0); Mean Corpuscular Hemoglobin 25.3 pg (27.0-33.0); Mean Corpuscular Volume 79.1 fl (81.2-95.1); Mean Platelet Volume 10.9 fl (7.4-10.4); Platelet Count 309 10x3/uL (150-450); RBC Distribution Width 16.5 % (11.5-14.5); Red Blood Cell (RBC) Count 4.83 10x6/uL (4.32-5.72); White Blood Cell (WBC) Count 14.9 10x3/uL (3.5-10.5)
[2022-01-27 04:54] LABS: Anion Gap 15 mmol/L (10-20); BUN (Urea Nitrogen) 31 mg/dL (8.4-25.7); Calc. Creatinine Clearance 136 mL/min (70-130); Calcium 9.6 mg/dL (7.8-10.44); Carbon Dioxide 25 mmol/L (22-29); Chloride 101 mmol/L (98-107); Estimated GFR 72; Glucose 173 mg/dL (70-105); Potassium 4.7 mmol/L (3.5-5.1); Sodium 136 mmol/L (136-145)
[2022-01-27 05:46] LABS: Platelet Morphology Comment Appears Adequate; RBC Morphology Normal
[2022-01-27 05:48] LABS: Band 6 % (5-11); Lymphocytes 5 % (21-51); Monocytes 6 % (0-10)
[2022-01-27] MEDS: Mometasone/Formoterol 200/5 60 PUFF INH SCH ×2 (06:26→19:40)
[2022-01-27] MEDS: Atorvastatin Calcium 40 MG TAB PO SCH (10:49)
[2022-01-27] MEDS: Amiodarone 200 MG TAB PO SCH ×2 (10:49→20:44)
[2022-01-27] MEDS: methylPREDNISolone Sod Succ 40 MG VIAL IVP SCH (10:49)
[2022-01-27] MEDS: Tamsulosin HCl 0.4 MG CAP PO SCH (10:49)
[2022-01-27] MEDS: Gabapentin 300 MG CAP PO SCH ×3 (10:49→20:44)
[2022-01-27] MEDS: guaiFENesin ER 600 MG TAB PO SCH ×2 (10:49→20:44)
[2022-01-27] MEDS: Lisinopril 2.5 MG TAB PO SCH (10:49)
[2022-01-27] MEDS: Aspirin 81 mg Enteric Coated Tablet PO SCH (10:49)
[2022-01-27] MEDS: Furosemide 40 MG TAB PO SCH ×2 (10:49→15:07)
[2022-01-27] MEDS: Acetylcysteine 800 MG/4 ML VIAL PO SCH (10:49)
[2022-01-27] MEDS: Carvedilol 3.125 MG TAB PO SCH ×2 (10:49→20:44)
[2022-01-27] MEDS: Enoxaparin Sodium 40 MG/0.4 ML SYRINGE SC SCH (10:49)
[2022-01-27] MEDS: Nicotine 14 MG PATCH TD SCH (11:57)
[2022-01-27] MEDS: HYDROcodone/Acetaminophen 10/325 mg Tablet PO PRN ×2 (15:55→20:46)
[2022-01-27] MEDS ORDERED: Simethicone Chewable 80 MG TAB PO PRN (16:19)
[2022-01-27] MEDS ORDERED: Mag-Al 1200 mg/1200 mg/30 ML UDCUP PO PRN (16:19)
[2022-01-27 17:34] LABS: Troponin I 0.038 ng/mL (< 0.028)
[2022-01-27] MEDS ORDERED: Vancomycin 1.5 GRAM/300 ML BAG 1.5 GM in Premix Bag 1 BAG IVPB SCH (20:00)
[2022-01-27] MEDS: Clopidogrel Bisulfate 75 MG TAB PO SCH (20:44)
[2022-01-27] MEDS ORDERED: VANCOMYCIN 1.25 GM/250 ML BAG IVPB SCH (21:00)
[2022-01-27] MEDS: Morphine 2 MG/ML VIAL SLOW IVP PRN (21:27)
[2022-01-28] MEDS: Morphine 2 MG/ML VIAL SLOW IVP PRN ×5 (01:17→16:10)
[2022-01-28] MEDS: Guaifenesin DM 100-10/5 ML UDCUP PO PRN ×3 (03:41→16:10)
[2022-01-28 04:58] LABS: #Monocytes 1.6 10x3/uL (0.0-1.1); #Neutrophils 12.3 10x3/uL (1.5-8.4); %Basophils 0.3 % (0.0-2.0); %Lymphocytes 9.8 % (18.0-47.0); %Neutrophils 77.7 % (40.0-75.0); Hemoglobin 11.7 g/dL (13.5-17.5); Mean Corpuscular HGB CONC 31.9 g/dL (32.0-36.0); Mean Corpuscular Hemoglobin 25.2 pg (27.0-33.0); Mean Corpuscular Volume 78.9 fl (81.2-95.1); Mean Platelet Volume 10.3 fl (7.4-10.4); Platelet Count 336 10x3/uL (150-450); RBC Distribution Width 16.9 % (11.5-14.5); Red Blood Cell (RBC) Count 4.65 10x6/uL (4.32-5.72); White Blood Cell (WBC) Count 15.9 10x3/uL (3.5-10.5)
[2022-01-28 05:02] LABS: Anion Gap 14 mmol/L (10-20); BUN (Urea Nitrogen) 30 mg/dL (8.4-25.7); Calc. Creatinine Clearance 139 mL/min (70-130); Calcium 9.3 mg/dL (7.8-10.44); Carbon Dioxide 29 mmol/L (22-29); Chloride 100 mmol/L (98-107); Estimated GFR 74; Glucose 155 mg/dL (70-105); Magnesium 1.9 mg/dL (1.6-2.6); Potassium 4.6 mmol/L (3.5-5.1); Sodium 138 mmol/L (136-145)
[2022-01-28] MEDS: Mometasone/Formoterol 200/5 60 PUFF INH SCH ×2 (07:00→19:20)
[2022-01-28] MEDS: Gabapentin 300 MG CAP PO SCH ×3 (09:34→20:15)
[2022-01-28] MEDS: Tamsulosin HCl 0.4 MG CAP PO SCH (09:34)
[2022-01-28] MEDS: guaiFENesin ER 600 MG TAB PO SCH ×2 (09:34→20:15)
[2022-01-28] MEDS: Atorvastatin Calcium 40 MG TAB PO SCH (09:34)
[2022-01-28] MEDS: Aspirin 81 mg Enteric Coated Tablet PO SCH (09:34)
[2022-01-28] MEDS: Lisinopril 2.5 MG TAB PO SCH (09:34)
[2022-01-28] MEDS: predniSONE 20 MG TAB PO SCH (09:34)
[2022-01-28] MEDS: Furosemide 40 MG TAB PO SCH ×2 (09:34→12:59)
[2022-01-28] MEDS: Amiodarone 200 MG TAB PO SCH ×2 (09:35→20:15)
[2022-01-28] MEDS: Carvedilol 3.125 MG TAB PO SCH ×2 (09:35→20:15)
[2022-01-28] MEDS: Enoxaparin Sodium 40 MG/0.4 ML SYRINGE SC SCH (09:38)
[2022-01-28] MEDS: Nicotine 14 MG PATCH TD SCH (12:59)
[2022-01-28 13:14] LABS: Hemoglobin A1c 5.8 % (4.0-6.0)
[2022-01-28] MEDS ORDERED: Lidocaine 5% Patch TD SCH (14:30)
[2022-01-28] MEDS: Clopidogrel Bisulfate 75 MG TAB PO SCH (20:15)
[2022-01-29] MEDS: Transdermal Patch Removal TOP SCH (02:57)
[2022-01-29] MEDS: Guaifenesin DM 100-10/5 ML UDCUP PO PRN (03:44)
[2022-01-29] MEDS: Morphine 2 MG/ML VIAL SLOW IVP PRN ×4 (04:52→20:09)
[2022-01-29 05:22] LABS: Troponin I 0.041 ng/mL (< 0.028)
[2022-01-29] MEDS: Mometasone/Formoterol 200/5 60 PUFF INH SCH ×2 (07:30→19:50)
[2022-01-29] MEDS: predniSONE 20 MG TAB PO SCH (09:56)
[2022-01-29] MEDS: Furosemide 40 MG TAB PO SCH ×2 (09:56→14:28)
[2022-01-29] MEDS: Lisinopril 2.5 MG TAB PO SCH (09:57)
[2022-01-29] MEDS: Enoxaparin Sodium 40 MG/0.4 ML SYRINGE SC SCH (09:57)
[2022-01-29] MEDS: Aspirin 81 mg Enteric Coated Tablet PO SCH (09:57)
[2022-01-29] MEDS: guaiFENesin ER 600 MG TAB PO SCH ×2 (09:57→20:10)
[2022-01-29] MEDS: Gabapentin 300 MG CAP PO SCH ×3 (09:57→20:48)
[2022-01-29] MEDS: Amiodarone 200 MG TAB PO SCH ×2 (09:58→20:10)
[2022-01-29] MEDS: Atorvastatin Calcium 40 MG TAB PO SCH (09:58)
[2022-01-29] MEDS: Tamsulosin HCl 0.4 MG CAP PO SCH (09:58)
[2022-01-29] MEDS: Carvedilol 3.125 MG TAB PO SCH ×2 (09:58→20:10)
[2022-01-29] MEDS: Nicotine 14 MG PATCH TD SCH (14:11)
[2022-01-29] MEDS: Lidocaine 5% Patch TD SCH (14:28)
[2022-01-29] MEDS: HumaLOG 300 UNITS/3 ML VIAL SC PRN (15:44)
[2022-01-29] MEDS: Clopidogrel Bisulfate 75 MG TAB PO SCH (20:10)
[2022-01-30] MEDS: Morphine 2 MG/ML VIAL SLOW IVP PRN ×5 (00:11→21:36)
[2022-01-30] MEDS: HYDROcodone/Acetaminophen 5/325 mg Tablet PO PRN (02:06)
[2022-01-30] MEDS: Guaifenesin DM 100-10/5 ML UDCUP PO PRN ×2 (02:07→19:26)
[2022-01-30] MEDS: Transdermal Patch Removal TOP SCH (02:42)
[2022-01-30] MEDS: Mometasone/Formoterol 200/5 60 PUFF INH SCH ×2 (08:10→21:25)
[2022-01-30] MEDS: Enoxaparin Sodium 40 MG/0.4 ML SYRINGE SC SCH (08:50)
[2022-01-30] MEDS: Furosemide 40 MG TAB PO SCH ×2 (08:54→14:57)
[2022-01-30] MEDS: Lisinopril 2.5 MG TAB PO SCH (08:55)
[2022-01-30] MEDS: Amiodarone 200 MG TAB PO SCH ×2 (08:55→20:02)
[2022-01-30] MEDS: Gabapentin 300 MG CAP PO SCH ×3 (08:55→20:02)
[2022-01-30] MEDS: Aspirin 81 mg Enteric Coated Tablet PO SCH (08:55)
[2022-01-30] MEDS: predniSONE 20 MG TAB PO SCH (08:55)
[2022-01-30] MEDS: guaiFENesin ER 600 MG TAB PO SCH ×2 (08:56→20:02)
[2022-01-30] MEDS: Carvedilol 3.125 MG TAB PO SCH ×2 (08:56→20:30)
[2022-01-30] MEDS: Atorvastatin Calcium 40 MG TAB PO SCH (09:05)
[2022-01-30] MEDS: Tamsulosin HCl 0.4 MG CAP PO SCH (09:05)
[2022-01-30] MEDS ORDERED: Furosemide 40 MG/4 ML VIAL SLOW IVP SCH (11:45)
[2022-01-30] MEDS: Lidocaine 5% Patch TD SCH (12:27)
[2022-01-30] MEDS: Nicotine 14 MG PATCH TD SCH (12:27)
[2022-01-30] MEDS: HumaLOG 300 UNITS/3 ML VIAL SC PRN (16:51)
[2022-01-30] MEDS: Ketorolac Tromethamine 30 MG/ML VIAL IVP PRN (19:25)
[2022-01-30] MEDS: Clopidogrel Bisulfate 75 MG TAB PO SCH (20:02)
[2022-01-31] MEDS: Morphine 2 MG/ML VIAL SLOW IVP PRN ×5 (03:07→22:20)
[2022-01-31] MEDS: Guaifenesin DM 100-10/5 ML UDCUP PO PRN ×2 (03:09→17:45)
[2022-01-31] MEDS: Transdermal Patch Removal TOP SCH (03:09)
[2022-01-31 05:27] LABS: #Basophils 0.1 10x3/uL (0.0-0.2); #Eosinphils 0.5 10x3/uL (0.0-0.5); #Monocytes 1.7 10x3/uL (0.0-1.1); #Neutrophils 12.8 10x3/uL (1.5-8.4); %Basophils 0.4 % (0.0-2.0); %Eosinophils 2.6 % (0.0-6.0); %Lymphocytes 8.6 % (18.0-47.0); %Monocytes 9.6 % (0.0-10.0); %Neutrophils 74.2 % (40.0-75.0); Hemoglobin 11.8 g/dL (13.5-17.5); Mean Corpuscular HGB CONC 31.8 g/dL (32.0-36.0); Mean Corpuscular Volume 78.6 fl (81.2-95.1); Mean Platelet Volume 9.9 fl (7.4-10.4); Platelet Count 368 10x3/uL (150-450); RBC Distribution Width 16.7 % (11.5-14.5); Red Blood Cell (RBC) Count 4.72 10x6/uL (4.32-5.72); White Blood Cell (WBC) Count 17.3 10x3/uL (3.5-10.5)
[2022-01-31 05:52] LABS: Anion Gap 17 mmol/L (10-20); BUN (Urea Nitrogen) 32 mg/dL (8.4-25.7); Calc. Creatinine Clearance 130 mL/min (70-130); Calcium 8.9 mg/dL (7.8-10.44); Carbon Dioxide 30 mmol/L (22-29); Chloride 91 mmol/L (98-107); Estimated GFR 68; Glucose 147 mg/dL (70-105); Potassium 4.1 mmol/L (3.5-5.1); Sodium 134 mmol/L (136-145)
[2022-01-31] MEDS: Mometasone/Formoterol 200/5 60 PUFF INH SCH ×2 (07:30→19:50)
[2022-01-31] MEDS: guaiFENesin ER 600 MG TAB PO SCH ×2 (08:07→21:59)
[2022-01-31] MEDS: Ketorolac Tromethamine 30 MG/ML VIAL IVP PRN ×3 (08:11→23:54)
[2022-01-31] MEDS: Tamsulosin HCl 0.4 MG CAP PO SCH (08:27)
[2022-01-31] MEDS: Gabapentin 300 MG CAP PO SCH ×3 (08:27→21:59)
[2022-01-31] MEDS: predniSONE 20 MG TAB PO SCH (08:27)
[2022-01-31] MEDS: Amiodarone 200 MG TAB PO SCH ×2 (08:27→21:59)
[2022-01-31] MEDS: Furosemide 40 MG TAB PO SCH ×2 (08:27→14:25)
[2022-01-31] MEDS: Atorvastatin Calcium 40 MG TAB PO SCH (08:27)
[2022-01-31] MEDS: Carvedilol 3.125 MG TAB PO SCH ×2 (08:28→21:59)
[2022-01-31] MEDS: Lisinopril 2.5 MG TAB PO SCH (08:28)
[2022-01-31] MEDS: Aspirin 81 mg Enteric Coated Tablet PO SCH (08:28)
[2022-01-31] MEDS: Enoxaparin Sodium 40 MG/0.4 ML SYRINGE SC SCH (08:29)
[2022-01-31] MEDS: Nicotine 14 MG PATCH TD SCH (12:40)
[2022-01-31] MEDS: Lidocaine 5% Patch TD SCH (14:25)
[2022-01-31] MEDS: Nitroglycerin 0.4 MG TAB (25 Tab Bottle) SL PRN ×3 (17:19→19:57)
[2022-01-31] MEDS: HYDROcodone/Acetaminophen 10/325 mg Tablet PO PRN (18:31)
[2022-01-31 19:35] LABS: Troponin I 0.043 ng/mL (< 0.028)
[2022-01-31 22:37] LABS: Troponin I 0.062 ng/mL (< 0.028)
[2022-02-01] MEDS: Morphine 2 MG/ML VIAL SLOW IVP PRN ×7 (00:38→22:35)
[2022-02-01] MEDS: Transdermal Patch Removal TOP SCH (02:51)
[2022-02-01 04:19] LABS: #Basophils 0.1 10x3/uL (0.0-0.2); #Eosinphils 0.5 10x3/uL (0.0-0.5); #Monocytes 1.6 10x3/uL (0.0-1.1); #Neutrophils 11.5 10x3/uL (1.5-8.4); %Basophils 0.3 % (0.0-2.0); %Eosinophils 3.1 % (0.0-6.0); %Lymphocytes 11.3 % (18.0-47.0); %Monocytes 9.8 % (0.0-10.0); %Neutrophils 71.2 % (40.0-75.0); Hemoglobin 10.9 g/dL (13.5-17.5); Mean Corpuscular HGB CONC 32.7 g/dL (32.0-36.0); Mean Corpuscular Hemoglobin 25.5 pg (27.0-33.0); Mean Corpuscular Volume 77.8 fl (81.2-95.1); Mean Platelet Volume 10.1 fl (7.4-10.4); Platelet Count 352 10x3/uL (150-450); RBC Distribution Width 16.9 % (11.5-14.5); Red Blood Cell (RBC) Count 4.28 10x6/uL (4.32-5.72); White Blood Cell (WBC) Count 16.2 10x3/uL (3.5-10.5)
[2022-02-01 04:40] LABS: Anion Gap 14 mmol/L (10-20); BUN (Urea Nitrogen) 44 mg/dL (8.4-25.7); Calc. Creatinine Clearance 120 mL/min (70-130); Calcium 8.6 mg/dL (7.8-10.44); Carbon Dioxide 30 mmol/L (22-29); Chloride 97 mmol/L (98-107); Estimated GFR 62; Glucose 117 mg/dL (70-105); Potassium 4.2 mmol/L (3.5-5.1); Sodium 137 mmol/L (136-145)
[2022-02-01] MEDS: Mometasone/Formoterol 200/5 60 PUFF INH SCH ×2 (06:50→20:10)
[2022-02-01] MEDS: Guaifenesin DM 100-10/5 ML UDCUP PO PRN (08:15)
[2022-02-01] MEDS: Gabapentin 300 MG CAP PO SCH ×3 (08:16→20:00)
[2022-02-01] MEDS: Lisinopril 2.5 MG TAB PO SCH (08:16)
[2022-02-01] MEDS: Atorvastatin Calcium 40 MG TAB PO SCH (08:16)
[2022-02-01] MEDS: HYDROcodone/Acetaminophen 10/325 mg Tablet PO PRN (08:16)
[2022-02-01] MEDS: Furosemide 40 MG TAB PO SCH ×2 (08:16→13:47)
[2022-02-01] MEDS: Amiodarone 200 MG TAB PO SCH ×2 (08:16→20:00)
[2022-02-01] MEDS: Tamsulosin HCl 0.4 MG CAP PO SCH (08:16)
[2022-02-01] MEDS: predniSONE 20 MG TAB PO SCH (08:17)
[2022-02-01] MEDS: Carvedilol 3.125 MG TAB PO SCH ×2 (08:17→20:00)
[2022-02-01] MEDS: guaiFENesin ER 600 MG TAB PO SCH ×2 (08:21→20:00)
[2022-02-01] MEDS: Lidocaine 5% Patch TD SCH (13:47)
[2022-02-01] MEDS: Nicotine 14 MG PATCH TD SCH (13:47)
[2022-02-01 20:39] LABS: Bilirubin Negative (Negative); Blood, Urine Negative (Negative); Clarity Clear (Clear); Glucose, Urine (Dipstick) Negative (Negative); Ketone, Urine Negative (Negative); Leukocyte Negative (Negative); Nitrite Negative (Negative); Protein, Urine (Dipstick) Negative (Neg-Trace); Specific Gravity, Urine 1.015 (1.005-1.030)
[2022-02-01 20:44] LABS: Bacteria/HPF Rare-Few HPF (None Seen); RBC/HPF 0-3 HPF (0-3); Squamous Epithelial 0-3 HPF (0-3); WBC/HPF 0-3 HPF (0-3)
[2022-02-01] MEDS: Ketorolac Tromethamine 30 MG/ML VIAL IVP PRN (22:34)
[2022-02-02] MEDS: Morphine 2 MG/ML VIAL SLOW IVP PRN ×4 (01:19→11:08)
[2022-02-02] MEDS: Guaifenesin DM 100-10/5 ML UDCUP PO PRN ×3 (01:20→16:53)
[2022-02-02] MEDS: Transdermal Patch Removal TOP SCH (02:29)
[2022-02-02 04:46] LABS: #Basophils 0.1 10x3/uL (0.0-0.2); #Eosinphils 0.5 10x3/uL (0.0-0.5); #Monocytes 1.4 10x3/uL (0.0-1.1); #Neutrophils 11.9 10x3/uL (1.5-8.4); %Basophils 0.4 % (0.0-2.0); %Eosinophils 3.2 % (0.0-6.0); %Lymphocytes 11.1 % (18.0-47.0); %Monocytes 8.2 % (0.0-10.0); %Neutrophils 72.3 % (40.0-75.0); Hemoglobin 10.3 g/dL (13.5-17.5); Mean Corpuscular HGB CONC 31.9 g/dL (32.0-36.0); Mean Corpuscular Hemoglobin 25.1 pg (27.0-33.0); Mean Corpuscular Volume 78.8 fl (81.2-95.1); Mean Platelet Volume 10.2 fl (7.4-10.4); Platelet Count 365 10x3/uL (150-450); RBC Distribution Width 16.8 % (11.5-14.5); White Blood Cell (WBC) Count 16.5 10x3/uL (3.5-10.5)
[2022-02-02 04:58] LABS: ALT (SGPT) 18 U/L (8-55); AST (SGOT) 22 U/L (5-34); Albumin 2.9 g/dL (3.5-5.0); Alkaline Phosphatase 65 U/L (40-110); Anion Gap 16 mmol/L (10-20); BUN (Urea Nitrogen) 42 mg/dL (8.4-25.7); Bilirubin, Total 0.7 mg/dL (0.2-1.2); Calc. Creatinine Clearance 108 mL/min (70-130); Calcium 8.5 mg/dL (7.8-10.44); Carbon Dioxide 29 mmol/L (22-29); Chloride 95 mmol/L (98-107); Estimated GFR 55; Globulin 2.7 g/dL (2.4-3.5); Glucose 118 mg/dL (70-105); Potassium 3.9 mmol/L (3.5-5.1); Protein, Total 5.6 g/dL (6.0-8.3); Sodium 136 mmol/L (136-145)
[2022-02-02] MEDS: Mometasone/Formoterol 200/5 60 PUFF INH SCH ×2 (07:18→20:15)
[2022-02-02] MEDS: Atorvastatin Calcium 40 MG TAB PO SCH (08:05)
[2022-02-02] MEDS: Furosemide 40 MG TAB PO SCH ×2 (08:06→15:20)
[2022-02-02] MEDS: Carvedilol 3.125 MG TAB PO SCH ×2 (08:06→21:20)
[2022-02-02] MEDS: Amiodarone 200 MG TAB PO SCH ×2 (08:06→21:20)
[2022-02-02] MEDS: Tamsulosin HCl 0.4 MG CAP PO SCH (08:06)
[2022-02-02] MEDS: guaiFENesin ER 600 MG TAB PO SCH ×2 (08:06→21:28)
[2022-02-02] MEDS: predniSONE 10 MG TAB PO SCH (08:06)
[2022-02-02] MEDS: Gabapentin 300 MG CAP PO SCH ×3 (08:06→21:19)
[2022-02-02] MEDS: Lisinopril 2.5 MG TAB PO SCH (08:09)
[2022-02-02] MEDS ORDERED: Polyethylene Glycol 3350 17 GM Packet PO PRN (08:24)
[2022-02-02] MEDS ORDERED: Electrolyte Replacement Protocol 1 EACH FS SCH (08:30)
[2022-02-02] MEDS ORDERED: Magnesium 2 GM/50 ML(in water) 2 GM in Premix Bag 1 BAG IVPB SCH (08:45)
[2022-02-02] MEDS: Senokot S 8.6-50 MG TAB PO SCH ×2 (11:26→21:21)
[2022-02-02] MEDS: Ketorolac Tromethamine 30 MG/ML VIAL IVP PRN (12:45)
[2022-02-02] MEDS ORDERED: Morphine 2 MG/ML VIAL SLOW IVP PRN (12:54)
[2022-02-02] MEDS ORDERED: Lidocaine 5% Patch TD SCH (13:00)
[2022-02-02] MEDS: Acetaminophen 325 MG TAB PO SCH ×2 (15:20→21:18)
[2022-02-02] MEDS: Morphine IR Tab 15 MG TAB PO PRN ×2 (15:20→21:28)
[2022-02-02] MEDS: Lidocaine 5% Patch TD SCH (15:22)
[2022-02-03] MEDS: Guaifenesin DM 100-10/5 ML UDCUP PO PRN ×4 (02:48→17:36)
[2022-02-03] MEDS: Nicotine 14 MG PATCH TD PRN (02:48)
[2022-02-03] MEDS: Transdermal Patch Removal TOP SCH (02:51)
[2022-02-03 04:45] LABS: #Basophils 0.1 10x3/uL (0.0-0.2); #Eosinphils 0.5 10x3/uL (0.0-0.5); #Monocytes 1.6 10x3/uL (0.0-1.1); #Neutrophils 16.9 10x3/uL (1.5-8.4); %Basophils 0.3 % (0.0-2.0); %Eosinophils 2.5 % (0.0-6.0); %Lymphocytes 6.3 % (18.0-47.0); %Monocytes 7.6 % (0.0-10.0); %Neutrophils 80.1 % (40.0-75.0); Hemoglobin 10.2 g/dL (13.5-17.5); Mean Corpuscular HGB CONC 31.9 g/dL (32.0-36.0); Mean Corpuscular Hemoglobin 25.1 pg (27.0-33.0); Mean Corpuscular Volume 78.6 fl (81.2-95.1); Platelet Count 344 10x3/uL (150-450); RBC Distribution Width 16.8 % (11.5-14.5); Red Blood Cell (RBC) Count 4.07 10x6/uL (4.32-5.72); White Blood Cell (WBC) Count 21.1 10x3/uL (3.5-10.5)
[2022-02-03 05:02] LABS: ALT (SGPT) 24 U/L (8-55); AST (SGOT) 24 U/L (5-34); Albumin 2.8 g/dL (3.5-5.0); Alkaline Phosphatase 69 U/L (40-110); Anion Gap 17 mmol/L (10-20); BUN (Urea Nitrogen) 49 mg/dL (8.4-25.7); Bilirubin, Total 1.1 mg/dL (0.2-1.2); Calc. Creatinine Clearance 102 mL/min (70-130); Calcium 8.5 mg/dL (7.8-10.44); Carbon Dioxide 28 mmol/L (22-29); Chloride 92 mmol/L (98-107); Estimated GFR 51; Globulin 2.9 g/dL (2.4-3.5); Glucose 125 mg/dL (70-105); Magnesium 2.3 mg/dL (1.6-2.6); Phosphorus 4.5 mg/dL (2.3-4.7); Potassium 4.1 mmol/L (3.5-5.1); Protein, Total 5.7 g/dL (6.0-8.3); Sodium 133 mmol/L (136-145)
[2022-02-03] MEDS: Morphine IR Tab 15 MG TAB PO PRN ×3 (06:55→19:58)
[2022-02-03] MEDS: Mometasone/Formoterol 200/5 60 PUFF INH SCH ×2 (07:00→19:30)
[2022-02-03] MEDS: Furosemide 40 MG TAB PO SCH ×2 (09:33→17:40)
[2022-02-03] MEDS: Tamsulosin HCl 0.4 MG CAP PO SCH (09:33)
[2022-02-03] MEDS: Gabapentin 300 MG CAP PO SCH ×3 (09:33→23:00)
[2022-02-03] MEDS: Lisinopril 2.5 MG TAB PO SCH ×2 (09:34→09:55)
[2022-02-03] MEDS: guaiFENesin ER 600 MG TAB PO SCH ×2 (09:34→22:59)
[2022-02-03] MEDS: Senokot S 8.6-50 MG TAB PO SCH ×2 (09:34→23:15)
[2022-02-03] MEDS: Atorvastatin Calcium 40 MG TAB PO SCH (09:34)
[2022-02-03] MEDS: Carvedilol 3.125 MG TAB PO SCH ×2 (09:35→23:00)
[2022-02-03] MEDS: Acetaminophen 325 MG TAB PO SCH ×3 (09:35→23:01)
[2022-02-03] MEDS: Amiodarone 200 MG TAB PO SCH ×2 (09:35→22:59)
[2022-02-03] MEDS: predniSONE 10 MG TAB PO SCH (09:35)
[2022-02-03] MEDS ORDERED: Cepastat Lozenges 1 LOZ PO PRN (11:55)
[2022-02-03] MEDS: Lidocaine 5% Patch TD SCH (17:36)
[2022-02-03] MEDS: Morphine 2 MG/ML VIAL SLOW IVP PRN (17:37)
[2022-02-03] MEDS ORDERED: cefTRIAXone\\ROCEPHIN 2 GM in Sodium Chloride 0.9% 100 ML IVPB SCH (18:30)
[2022-02-03] MEDS ORDERED: guaiFENesin ER 600 MG TAB PO SCH (21:00)
[2022-02-03] MEDS ORDERED: Polyethylene Glycol 3350 17 GM Packet PO SCH (21:00)
[2022-02-03] MEDS: Doxycycline 100 MG CAP PO SCH (23:15)
[2022-02-04] MEDS: Nicotine 14 MG PATCH TD PRN (00:56)
[2022-02-04] MEDS: Transdermal Patch Removal TOP SCH (03:47)
[2022-02-04] MEDS: Nitroglycerin 0.4 MG TAB (25 Tab Bottle) SL PRN (05:28)
[2022-02-04] MEDS: Guaifenesin DM 100-10/5 ML UDCUP PO PRN (05:37)
[2022-02-04] MEDS: Morphine IR Tab 15 MG TAB PO PRN ×2 (05:52→10:58)
[2022-02-04 06:07] LABS: #Basophils 0.1 10x3/uL (0.0-0.2); #Eosinphils 0.5 10x3/uL (0.0-0.5); #Monocytes 1.6 10x3/uL (0.0-1.1); %Basophils 0.3 % (0.0-2.0); %Eosinophils 2.1 % (0.0-6.0); %Lymphocytes 5.8 % (18.0-47.0); %Monocytes 7.1 % (0.0-10.0); %Neutrophils 81.6 % (40.0-75.0); Hemoglobin 10.1 g/dL (13.5-17.5); Mean Corpuscular HGB CONC 32.2 g/dL (32.0-36.0); Mean Corpuscular Hemoglobin 25.1 pg (27.0-33.0); Mean Corpuscular Volume 78.1 fl (81.2-95.1); Mean Platelet Volume 9.6 fl (7.4-10.4); Platelet Count 355 10x3/uL (150-450); Red Blood Cell (RBC) Count 4.02 10x6/uL (4.32-5.72)
[2022-02-04 06:10] LABS: Anion Gap 15 mmol/L (10-20); BUN (Urea Nitrogen) 42 mg/dL (8.4-25.7); Calc. Creatinine Clearance 122 mL/min (70-130); Calcium 8.7 mg/dL (7.8-10.44); Carbon Dioxide 29 mmol/L (22-29); Chloride 94 mmol/L (98-107); Estimated GFR 63; Glucose 143 mg/dL (70-105); Potassium 4.2 mmol/L (3.5-5.1); Sodium 134 mmol/L (136-145)
[2022-02-04] MEDS: Mometasone/Formoterol 200/5 60 PUFF INH SCH (06:50)
[2022-02-04] MEDS: Furosemide 20 MG TAB PO SCH ×2 (08:42→13:39)
[2022-02-04] MEDS: guaiFENesin ER 600 MG TAB PO SCH (08:42)
[2022-02-04] MEDS: Amiodarone 200 MG TAB PO SCH (08:42)
[2022-02-04] MEDS: Atorvastatin Calcium 40 MG TAB PO SCH (08:42)
[2022-02-04] MEDS: Tamsulosin HCl 0.4 MG CAP PO SCH (08:42)
[2022-02-04] MEDS: Gabapentin 300 MG CAP PO SCH ×2 (08:42→13:40)
[2022-02-04] MEDS: Lisinopril 2.5 MG TAB PO SCH (08:42)
[2022-02-04] MEDS: Carvedilol 3.125 MG TAB PO SCH (08:42)
[2022-02-04] MEDS: Senokot S 8.6-50 MG TAB PO SCH (08:42)
[2022-02-04] MEDS: Doxycycline 100 MG CAP PO SCH (08:42)
[2022-02-04] MEDS: predniSONE 10 MG TAB PO SCH (08:42)
[2022-02-04] MEDS: Acetaminophen 325 MG TAB PO SCH ×2 (08:43→14:31)
[2022-02-04] MEDS: Morphine 2 MG/ML VIAL SLOW IVP PRN ×2 (08:43→13:40)
[2022-02-04 10:07] VITALS: TEMP 98
[2022-02-04 12:40] VITALS: BP 129/59
[2022-02-04] MEDS: Lidocaine 5% Patch TD SCH (13:39)
[2022-02-05] MEDS ORDERED: Aspirin 81 mg Enteric Coated Tablet PO SCH (09:00)
== END 2022-02-04 14:52 | disposition short-term general hospital (02) | DRG 871 ==
LOC: CSHERS 23:25 → CSHTELE 01-26 04:05
PROVIDERS: ADMIT Student in an Organized Health Care Education/Training Program; ATTEND Internal Medicine
PROC: 3E03329 Introduction of Other Anti-infective into Peripheral Vein, Percutaneous Approach (ICD-10-PCS; 2022-01-26)
PROC: 5A09357 Assistance with Respiratory Ventilation, Less than 24 Consecutive Hours, Continuous Positive Airway Pressure (ICD-10-PCS; principal; 2022-02-03)
DX: A41.9 Sepsis, unspecified organism (principal); J18.9 Pneumonia, unspecified organism; J96.01 Acute respiratory failure with hypoxia; S22.31XA Fracture of one rib, right side, initial encounter for closed fracture; I50.42 Chronic combined systolic (congestive) and diastolic (congestive) heart failure; I13.0 Hypertensive heart and chronic kidney disease with heart failure and stage 1 through stage 4 chronic kidney disease, or unspecified chronic kidney disease; J44.1 Chronic obstructive pulmonary disease with (acute) exacerbation; J96.12 Chronic respiratory failure with hypercapnia; Z68.42 Body mass index [BMI] 45.0-49.9, adult; J44.0 Chronic obstructive pulmonary disease with (acute) lower respiratory infection; D62 Acute posthemorrhagic anemia; I42.9 Cardiomyopathy, unspecified; I25.10 Atherosclerotic heart disease of native coronary artery without angina pectoris; R65.20 Severe sepsis without septic shock; G47.33 Obstructive sleep apnea (adult) (pediatric); E78.5 Hyperlipidemia, unspecified; I48.0 Paroxysmal atrial fibrillation; E66.01 Morbid (severe) obesity due to excess calories; N40.0 Benign prostatic hyperplasia without lower urinary tract symptoms; F17.210 Nicotine dependence, cigarettes, uncomplicated; I71.4 Abdominal aortic aneurysm, without rupture; N18.31 Chronic kidney disease, stage 3a; F12.10 Cannabis abuse, uncomplicated; K21.9 Gastro-esophageal reflux disease without esophagitis; G47.419 Narcolepsy without cataplexy; F41.9 Anxiety disorder, unspecified; F31.9 Bipolar disorder, unspecified; E11.22 Type 2 diabetes mellitus with diabetic chronic kidney disease; J98.4 Other disorders of lung; N62 Hypertrophy of breast; E83.42 Hypomagnesemia; Z98.890 Other specified postprocedural states; Z79.899 Other long term (current) drug therapy; Z79.82 Long term (current) use of aspirin; Z79.02 Long term (current) use of antithrombotics/antiplatelets; Z86.73 Personal history of transient ischemic attack (TIA), and cerebral infarction without residual deficits; Z79.51 Long term (current) use of inhaled steroids; Z91.14 Patient's other noncompliance with medication regimen; Z80.0 Family history of malignant neoplasm of digestive organs; R07.89 Other chest pain; F17.200 Nicotine dependence, unspecified, uncomplicated
CPT/HCPCS: 36415; 36416; 71045; 71250; 72072; 72100; 80048; 80053; 81001; 82553; 83036; 83605; 83690; 83735; 83880; 84100; 84145; 84484; 85025; 87040; 87077; 87149; 87186; 87449; 87811; 87899; 93005; 93010; 94640; 94644; 94660; 94664; 94760; 96365; 96374; 96375; 96376; J0692; J0696; J1650; J1815; J1885; J1940; J1956; J2270; J2920; J2930; J3370; J3475; J3490; J7512; J7611; J7620

== ENCOUNTER 2025-04-04 09:00 | Outpatient (CLI) | payer MEDICARE, OTHER | END 2025-04-04 09:01 | disposition home or self-care (01) | LOC: CSHSLEEP 09:00 | PROVIDERS: ATTEND Family Medicine | DX: G47.33 Obstructive sleep apnea (adult) (pediatric) (principal); J44.9 Chronic obstructive pulmonary disease, unspecified; R53.83 Other fatigue; K21.9 Gastro-esophageal reflux disease without esophagitis; I50.9 Heart failure, unspecified | CPT/HCPCS: 95800 ==